=== PATIENT | male | born 1995 | race Caucasian/White ===

== ENCOUNTER 2019-05-11 18:39 | Observation (INO) | payer OTHER, SELFPAY ==
[2019-05-11 18:40] VITALS: BP 129/81; PULSE 95; RESP 15; TEMP 36.6; O2SAT 96; BMI 33.7
[2019-05-11 20:03] LABS: Add Manual Diff / Slide Review NO; Basophils Absolute Auto 100 /uL (0-100); Basophils Percent Auto 0.6 % (0-2); Eosinophils Absolute Auto 400 /uL (0-450); Eosinophils Percent Auto 2.8 % (2-4); Hemoglobin 14.1 g/dL (13.5-17.5); Lymphocytes Absolute Auto 2500 /uL (1100-4500); Lymphocytes Percent Auto 19.9 % (25-40); Mean Corpuscular HGB Conc 33.6 % (30-36); Mean Corpuscular Hemoglobin 27.8 PG (26-34); Monocytes Absolute Auto 700 /uL (0-900); Monocytes Percent Auto 5.2 % (3-14); Neutrophils Absolute Auto 9000 /uL (1500-7000); Neutrophils Percent Auto 71.5 % (50-75); Platelet Count 297 X10^3/uL (150-400); Red Blood Cell Count 5.06 X10^6/uL (4.5-5.9); Red Cell Distribution Width 13.1 % (11.6-14.8); White Blood Cell Count 12.6 X10^3/uL (4.5-11.0)
[2019-05-11 20:04] LABS: INR 1.1 (0.9-1.3); Prothrombin Time 12.5 SECONDS (10.1-12.7)
[2019-05-11 20:06] LABS: PTT Partial Thromboplastin Tim 29 SECONDS (26.4-36.2)
[2019-05-11 20:08] LABS: Alanine Aminotransferase 32 IU/L (21-72); Albumin 4.4 g/dL (3.5-5.0); Albumin Globulin Ratio 1.7 (1.0-2.8); Alkaline Phosphatase 61 U/L (38-126); Aspartate Aminotransferase 22 IU/L (17-59); Bilirubin Total 0.6 mg/dL (0.2-1.3); Blood Urea Nitrogen 32 mg/dL (9-20); Calcium 9.2 mg/dL (8.4-10.2); Carbon Dioxide 22 mmol/L (22-32); Chloride 106 mmol/L (98-107); Estimated Glomerular Filt Rate > 60.0 mL/min (>60); Globulin 2.6 g/dL (1.7-4.1); Glucose 100 mg/dL (70-100); HEMOLYSIS < 15 (0-50); Potassium 4.5 mmol/L (3.4-5.1); Sodium 139 mmol/L (137-145)
--- NOTE | 2019-05-11 20:38 | ED.GIBLEED ---
HPI - GI Bleed General Chief complaint: GI Bleed Stated complaint: BLACK STOOLS RED Time Seen by Provider: 05/11/19 19:29 Source: patient Mode of arrival: Ambulatory Limitations: no limitations History of Present Illness HPI Narrative: The patient was having abdominal discomfort earlier today. He saw his doctor about an asthma checkup about 4:00 p.m.. After leaving the doctor's office he developed a bloody diarrhea. He has had no fever, chills or sweats. He has no chest pain or dyspnea. He has only lower abdominal discomfort. He has no history of ulcers, or chronic GI illness. There is no family history of inflammatory bowel disease issues. He has no prior history of GI bleed. He had the bloody diarrhea, no changes with bowel movements, no history of hemorrhoids. He denies weakness or dizziness. He does not take aspirin or other NSAIDs. He is in otherwise good health. Related Data Allergies Allergy/AdvReac Type Severity Reaction Status Date / Time aspirin [ASPIRIN] Allergy Mild SHAKES, CHERY Verified 05/11/19 18:49 oxycodone [OXYCODONE] Allergy Unknown HIVES=PERCO Verified 05/11/19 18:49 CET Review of Systems Review of Systems ROS Unobtainable: All systems reviewed & are unremarkable except as noted in HPI and below Constitutional Constitutional: Denies chills, Denies fever(s), Denies lethargy and Denies weakness ENT Ears, Nose, Mouth, and Throat: Denies neck pain and Denies sore throat Cardiovascular Cardiovascular: Denies chest pain, Denies irregular heart rhythm, Denies lightheadedness, Denies palpitations and Denies dyspnea Respiratory Respiratory: Denies cough, Denies dyspnea and Denies wheezing Gastrointestinal Gastrointestinal: Reports abdominal pain (Lower abdomen.), Denies nausea, Denies vomiting and Reports other (Bloody diarrhea) Genitourinary Genitourinary: Denies dysuria Musculoskeletal Musculoskeletal: Denies back pain and Denies neck pain Integumentary/Breasts Skin/Breast: Denies erythema, Denies rash and Denies wounds Neurologic Neurologic: Denies weakness Endocrine Endocrine: Denies palpitations Allergic/Immunologic Allergic/Immunologic: Denies wheezing [facility] Surgical History (Updated 05/12/19 @ 02:16 by Andrew Zelaya MD) No pertinent past surgical history (Acute) Social History household members: friend(s) Smoking Status: Never smoker Social History household members: friend(s) Smoking Status: Never smoker Exam Initial Vital Signs Initial Vital Signs: Vital Signs Temperature 97.8 F 05/11/19 18:40 Pulse Rate 95 H 05/11/19 18:40 Respiratory Rate 15 05/11/19 18:40 Blood Pressure 129/81 05/11/19 18:40 Pulse Oximetry 96 05/11/19 18:40 Const General: cooperative and well developed Nutritional Appearance: well nourished Orientation: alert, awake and oriented x3 HENMT Head: normocephalic and atraumatic Eyes Conjunctivae: conjunctivae normal Chest Chest: normal inspection of the chest Resp Effort & Inspection: normal respiratory effort, able to speak in complete sentences, no respiratory distress and no use of accessory muscles Auscultation: clear to auscultation bilaterally, no rales, no rhonchi and no wheezes Cardio Rate: regular rate Rhythm: regular rhythm Heart Sounds: S1 normal, S2 normal, no click, no gallops, no murmurs and no rubs Pulses: normal peripheral pulses GI Inspection: non-distended Palpation: soft, no hepatosplenomegaly, No guarding, No pulsatile mass and tender (Suprapubic and LLQ) Auscultation: normal bowel sounds Back/Spine/Pelvis Back: No CVA tenderness Skin General: no rashes or lesions noted, No jaundice and No petechiae Neuro General: alert, oriented x3, gait normal and no focal motor deficits Speech: speech normal Extrem General: full ROM, no clubbing, cyanosis or edema, no pedal edema and no calf tenderness Course Course Course Narrative: The patient has continued to have bloody diarrhea since arrival to the ER. CT of the abdomen pelvis is benign. Repeat H/H reveals notable decline. The case was discussed with on-call surgery, Dr. Dunn. He will follow patient consultation. The case was also discussed with the on-call hospitalist, WANDY Wahl. He will admit the patient. The patient has received IV fluids and Protonix prior to admission. Orders Ordered: ED Orders 05/11/19 19:45 Complete Blood Count AUTO DIFF Stat Comprehensive Metabolic Panel Stat Partial Thromboplastin Time Stat Prothrombin Time INR Stat Type and Screen Stat 05/11/19 19:58 EKG-12 Lead Stat 05/11/19 20:45 CT abdomen pelvis w con Stat 05/11/19 23:17 Complete Blood Count AUTO DIFF Stat Acetaminophen (Tylenol) 650 mg PO Q6HR PRN PRN Reason: As Needed for Fever/Mild Pain Sodium Chloride (Normal Saline 0.9%) 1,000 mls @ 100 mls/hr IV CONT [place] Last Admin: 05/12/19 01:52 Dose: 100 mls/hr Documented by: ARTIE Ondansetron HCl (Zofran Odt) 4 mg PO Q8HR PRN PRN Reason: Nausea And Vomiting Pantoprazole Sodium (Protonix) 40 mg IV DAILY [place] Discontinued Medications Sodium Chloride (Normal Saline 0.9%) 1,000 mls @ 1,000 mls/hr IV BOLUS ONE Stop: 05/11/19 21:44 Last Infusion: 05/11/19 21:49 Dose: 0 mls/hr Documented by: Admin: 05/11/19 20:57 Dose: 1,000 mls/hr Documented by: FRANCIE Pantoprazole Sodium (Protonix) 40 mg IV NOW ONE Stop: 05/12/19 00:32 Last Admin: 05/12/19 00:53 Dose: 40 mg Documented by: FRANCIE Pantoprazole Sodium (Protonix) 40 mg PO 0600 [facility] Vital Signs Vital signs: Vital Signs - 8 hr 05/11/19 18:40 05/11/19 21:30 Temperature 97.8 F Pulse Rate 95 H 84 Respiratory Rate 15 16 Blood Pressure 129/81 Blood Pressure [Right Arm] 132/89 Pulse Oximetry 96 98 MDM - GI Bleed Lab Data Result diagrams: 05/11/19 23:17 05/11/19 19:45 Labs: Lab Results 05/11/19 05/11/19 05/11/19 Range/Units 19:45 19:45 19:45 WBC 12.6 H (4.5-11.0) X10^3/uL RBC 5.06 (4.5-5.9) X10^6/uL Hgb 14.1 (13.5-17.5) g/dL Hct 42.0 (41-53) % MCV 83.0 (80-100) fL MCH 27.8 (26-34) PG MCHC 33.6 (30-36) % RDW 13.1 (11.6-14.8) % Plt Count 297 (150-400) X10^3/uL Neut % (Auto) 71.5 (50-75) % Lymph % (Auto) 19.9 L (25-40) % [place] % (Auto) 5.2 (3-14) % Eos % (Auto) 2.8 (2-4) % Baso % (Auto) 0.6 (0-2) % Neut # (Auto) 9000 H (5090-1230) /uL Lymph # (Auto) 2500 (0286-9585) /uL [place] # (Auto) 700 (0-900) /uL Eos # (Auto) 400 (0-450) /uL Baso # (Auto) 100 (0-100) /uL PT 12.5 (10.1-12.7) SECONDS INR 1.1 (0.9-1.3) APTT 29 (26.4-36.2) SECONDS Sodium 139 (137-145) mmol/L Potassium 4.5 (3.4-5.1) mmol/L Chloride 106 (98-107) mmol/L Carbon Dioxide 22 (22-32) mmol/L BUN 32 H (9-20) mg/dL Creatinine 0.80 (0.66-1.25) mg/dL Estimated GFR > 60.0 (>60) mL/min BUN/Creatinine Ratio 40.0 H (6-22) Glucose 100 (70-100) mg/dL Calcium 9.2 (8.4-10.2) mg/dL Total Bilirubin 0.6 (0.2-1.3) mg/dL AST 22 (17-59) IU/L ALT 32 (21-72) IU/L Alkaline Phosphatase 61 (38-126) U/L Total Protein 7.0 (6.3-8.2) g/dL Albumin 4.4 (3.5-5.0) g/dL Globulin 2.6 (1.7-4.1) g/dL Albumin/Globulin Ratio 1.7 (1.0-2.8) Blood Type Antibody Screen 05/11/19 05/11/19 Range/Units 19:45 23:17 WBC 10.7 (4.5-11.0) X10^3/uL RBC 4.57 (4.5-5.9) X10^6/uL Hgb 12.9 L (13.5-17.5) g/dL Hct 37.5 L (41-53) % MCV 82.2 (80-100) fL MCH 28.1 (26-34) PG MCHC 34.2 (30-36) % RDW 13.0 (11.6-14.8) % Plt Count 278 (150-400) X10^3/uL Neut % (Auto) 63.5 (50-75) % Lymph % (Auto) 28.7 (25-40) % [place] % (Auto) 4.5 (3-14) % Eos % (Auto) 2.8 (2-4) % Baso % (Auto) 0.5 (0-2) % Neut # (Auto) 6800 (5388-8835) /uL Lymph # (Auto) 3100 (7310-5400) /uL [place] # (Auto) 500 (0-900) /uL Eos # (Auto) 300 (0-450) /uL Baso # (Auto) 100 (0-100) /uL PT (10.1-12.7) SECONDS INR (0.9-1.3) APTT (26.4-36.2) SECONDS Sodium (137-145) mmol/L Potassium (3.4-5.1) mmol/L Chloride (98-107) mmol/L Carbon Dioxide (22-32) mmol/L BUN (9-20) mg/dL Creatinine (0.66-1.25) mg/dL Estimated GFR (>60) mL/min BUN/Creatinine Ratio (6-22) Glucose (70-100) mg/dL Calcium (8.4-10.2) mg/dL Total Bilirubin (0.2-1.3) mg/dL AST (17-59) IU/L ALT (21-72) IU/L Alkaline Phosphatase (38-126) U/L Total Protein (6.3-8.2) g/dL Albumin (3.5-5.0) g/dL Globulin (1.7-4.1) g/dL Albumin/Globulin Ratio (1.0-2.8) Blood Type O Positive Antibody Screen Negative Urine Dip Bedside Urine Glucose Negative Bedside Urine Bilirubin - Negative Bedside Urine Ketone +/- 5 Urine Specific [place] 1.015 Bedside Urine Occult Blood - Negative Bedside Urine pH 6.5 Bedside Urine Protein - Negative Bedside Urine Urobilinogen - Negative Bedside Urine Nitrite - Negative Bedside Urine Leukocytes - Negative Esterase Imaging Data CT scan - abdomen: Radiologist's impression: [address] [address] [address] Scan Report Signed Patient: Reinaldo Portillo JMR#: [id number] : 1995Acct:[id number] Age/Sex: 24 / MDate of Service: 05/11/19 Loc: ED Accession Number: [id number] Procedure: CT abdomen pelvis w con Ordering Provider: Andrew Zelaya MD PROCEDURE: CT ABDOMEN PELVIS W CON INDICATIONS: GI bleed. LLQ abdominal pain TECHNIQUE: After the administration of intravenous contrast, 5 mm thick sections acquired from the diaphragm to the symphysis. 5 mm coronal and sagittal reformats were acquired. For radiation dose reduction, the following was used: automated exposure control, adjustment of mA and/or kV according to patient size. COMPARISON: None. FINDINGS: Image quality: Diagnostic. Mild motion artifact. ABDOMEN: Lung bases: Lung bases are clear. No pleural effusion. Heart size is prominent. Solid organs: Liver is normal in size and enhancement. No focal lesion. Gallbladder is normal. Biliary system is non dilated. Pancreas enhances normally. Spleen is normal in size and enhancement. No adrenal nodules. Kidneys demonstrate normal size and enhancement, without hydronephrosis. Peritoneum and bowel: Bowel loops demonstrate normal wall thickness and caliber. Identification of GI bleeding may be obscured by positive oral contrast. No obvious mass. The appendix is normal. No free fluid or air. Nodes and vessels: No retroperitoneal or mesenteric adenopathy by size criteria. Aorta and inferior vena cava are normal in size. Miscellaneous: No ventral hernias. PELVIS: Genitourinary: Bladder is unremarkable. Miscellaneous: No inguinal hernias or adenopathy. Bones: No suspicious bony lesions. No vertebral body compression fractures. IMPRESSION: Negative exam. No abnormality identified to explain the patient's left lower quadrant abdominal pain. Note: GI bleeding could be obscured with the positive oral contrast. Dictated by: Pedro Perez M.D. on 05/11/2019 at 22:30 Approved by: Pedro Perez M.D. on 05/11/2019 at 22:36 Critical Care Time Critical Care Time Critical Care Time: Yes Total Critical Care Time: 35 Attestation: Critical care time included the initial evaluation, review radiology and lab data, multiple clinical decisions, and consultation with the on-call surgeon and hospitalist. Discharge Plan Departure Patient Disposition: Admitted as Observation Clinical Impression: Acute gastrointestinal bleeding Admit Date/Time: 05/12/19 00:48 Admit Provider: Alexi Wahl
--- NOTE | 2019-05-11 20:45 | DI.CT.S_ITS ---
PROCEDURE: CT ABDOMEN PELVIS W CON INDICATIONS: GI bleed. LLQ abdominal pain TECHNIQUE: After the administration of intravenous contrast, 5 mm thick sections acquired from the diaphragm to the symphysis. 5 mm coronal and sagittal reformats were acquired. For radiation dose reduction, the following was used: automated exposure control, adjustment of mA and/or kV according to patient size. COMPARISON: None. FINDINGS: Image quality: Diagnostic. Mild motion artifact. ABDOMEN: Lung bases: Lung bases are clear. No pleural effusion. Heart size is prominent. Solid organs: Liver is normal in size and enhancement. No focal lesion. Gallbladder is normal. Biliary system is non dilated. Pancreas enhances normally. Spleen is normal in size and enhancement. No adrenal nodules. Kidneys demonstrate normal size and enhancement, without hydronephrosis. Peritoneum and bowel: Bowel loops demonstrate normal wall thickness and caliber. Identification of GI bleeding may be obscured by positive oral contrast. No obvious mass. The appendix is normal. No free fluid or air. Nodes and vessels: No retroperitoneal or mesenteric adenopathy by size criteria. Aorta and inferior vena cava are normal in size. Miscellaneous: No ventral hernias. PELVIS: Genitourinary: Bladder is unremarkable. Miscellaneous: No inguinal hernias or adenopathy. Bones: No suspicious bony lesions. No vertebral body compression fractures. IMPRESSION: Negative exam. No abnormality identified to explain the patient's left lower quadrant abdominal pain. Note: GI bleeding could be obscured with the positive oral contrast. Dictated by: Pedro Perez M.D. on 05/11/2019 at 22:30 Approved by: Pedro Perez M.D. on 05/11/2019 at 22:36
[2019-05-11] MEDS: SODIUM CHLORIDE 0.9% 1,000 ML 1000 ML IV (20:57)
[2019-05-11 21:30] VITALS: BP 132/89; PULSE 84; RESP 16; O2SAT 98
[2019-05-11 23:24] LABS: Add Manual Diff / Slide Review NO; Basophils Absolute Auto 100 /uL (0-100); Basophils Percent Auto 0.5 % (0-2); Eosinophils Absolute Auto 300 /uL (0-450); Eosinophils Percent Auto 2.8 % (2-4); Hematocrit 37.5 % (41-53); Hemoglobin 12.9 g/dL (13.5-17.5); Lymphocytes Absolute Auto 3100 /uL (1100-4500); Lymphocytes Percent Auto 28.7 % (25-40); Mean Corpuscular HGB Conc 34.2 % (30-36); Mean Corpuscular Hemoglobin 28.1 PG (26-34); Mean Corpuscular Volume 82.2 fL (80-100); Monocytes Absolute Auto 500 /uL (0-900); Monocytes Percent Auto 4.5 % (3-14); Neutrophils Absolute Auto 6800 /uL (1500-7000); Neutrophils Percent Auto 63.5 % (50-75); Platelet Count 278 X10^3/uL (150-400); Red Blood Cell Count 4.57 X10^6/uL (4.5-5.9); White Blood Cell Count 10.7 X10^3/uL (4.5-11.0)
[2019-05-12] VITALS (12 sets, daily range): BP systolic 119–138; BP diastolic 67–93; PULSE 68–90; RESP 16–18; TEMP 36.1–36.8; O2SAT 97–100; BMI 33.7
[2019-05-12] MEDS: PANTOPRAZOLE 40 MG VIAL IV ×2 (00:53→08:20)
--- NOTE | 2019-05-12 01:32 | PM.HP.1 ---
History of Present Illness History of Present Illness Date Patient Seen: 05/12/19 Time Patient Seen: 01:32 Chief complaint: BLACK STOOLS RED Narrative: Mr. Reinaldo Portillo is a 24-year-old male patient with history significant for asthma and left TMJ pain presents to the ER with bloody stools. Patient states he had an acute onset of symptoms at 5:00 p.m. with lower abdominal pain that he describes as an intense ache. He went to the bathroom and passed bloody stool that he describes as black and crimson. With that he had associated symptoms of acute onset of dizziness, diaphoresis and nausea. He states he laid on the floor for approximately 20 minutes after which his systems improved and he had another bloody stool. He has had no hematemesis and has no personal or family history of GI problems and has never experienced bleeding of this nature before. He does have hemorrhoids. He also informs me he he takes ibuprofen approximately 3 times per week. He had no antecedent complaints or symptoms and was is in usual state health prior to his bloody stool. Reports no complaints of fevers or chills, chest pain or palpitations, shortness of breath or cough. He does have a history of asthma and uses an albuterol inhaler approximately once every other week. Reports no recent change in bowel habits and has no urinary difficulties. He reports no extremity or joint pains. Upon arrival in the ER the patient is afebrile with temperature 97.8?, heart rate of 95, blood pressure 129/81, respirations 15 saturating 96% on room air. Patient underwent laboratory testing finding an initial white count of 12.6, hemoglobin of 14 1 and hematocrit of 42 and platelets 278. On a subsequent recheck 3 hours later his hemoglobin had dropped to 12.9 and hematocrit to 37.5. His stool is guaiac positive. His chemistries are within normal limits, his BUN is 32 and creatinine 0.8. His nonfasting glucose is 100. His coagulation studies are within normal ranges as are his liver function. The ER consulted Dr. Dunn for evaluation of GI bleeding. He received a dose of Protonix 40 mg in the ER and is admitted for serial lab testing and evaluation of GI bleeding by General surgery. Patient History Medical History (Updated 05/12/19 @ 03:13 by WANDY [place]) Arthralgia of left temporomandibular joint (Acute) Asthma (02/28/14) Heart murmur on physical examination (Inactive) Surgical History (Updated 05/12/19 @ 03:13 by WANDY [place]) History of eye surgery (Acute) No pertinent past surgical history (Acute) Social History household members: friend(s) Smoking Status: Never smoker Family & Social History Safety & Behavioral: Feels Safe in Current Yes Environment Been Physically Hurt or No Threatened By a Person Tobacco & Substance use: Smoking Status Unknown if ever smoked alcohol intake frequency holiday/special occasion Substance Use Type does not use Comment: The patient is single and lives in a single family house with a roommate. He is unsure of family history estranged from his mother and father. He has 3 sisters who he states are in good health. 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 Smoking: Patient endorses occasionally smoking cigar but none for the last 5 months. Alcohol: Patient endorses occasionally drinking alcohol. Substance use: Patient denies recreational pharmaceuticals, herbal or cannabis products. Advanced directives: The patient has no formal advanced directives but in direct conversation expresses his desire to be FULL CODE. He designates Betina Lubin to be his surrogate decision maker.. Meds Home Medications and Allergies Home Medications Medication Instructions Recorded Confirmed Type albuterol sulfate 2 puff INHALATION Q4-6H PRN 05/12/19 05/12/19 History Allergies Allergy/AdvReac Type Severity Reaction Status Date / Time aspirin [ASPIRIN] Allergy Mild SHAKES, CHERY Verified 05/11/19 18:49 oxycodone [OXYCODONE] Allergy Unknown HIVES=PERCO Verified 05/11/19 18:49 CET Review of Systems Review of Systems ROS Unobtainable: All systems reviewed & are unremarkable except as noted in HPI and below Exam Vital Signs (past 8 hours): - 05/11/19 18:40 05/11/19 21:30 05/12/19 01:09 Temperature 97.8 F 97.6 F Pulse Rate 95 H 84 90 Respiratory Rate 15 16 18 Blood Pressure 129/81 Blood Pressure [Right Arm] 132/89 125/93 H Pulse Oximetry 96 98 100 Oxygen Delivery Method Room Air Narrative Exam Narrative: GENERAL APPEARANCE: well developed, overweight male ambulatory in the room in no acute distress. HEENT: Normocephalic, PERRLA, sclera anicteric conjunctiva clear, EOMs intact without nystagmus, no rhinorrhea, mucous membranes are moist and pink without lesions or exudate. NECK/THYROID: neck supple, no JVD, no thyromegaly, trachea midline. LYMPH NODES: no cervical or supraclavicular lymphadenopathy. SKIN: warm and dry, no suspicious lesions, no rashes, ulcerations or petechiae. HEART: regular rate and rhythm, S1-S2, faint systolic murmur, no rubs or gallops, brisk capillary refill, no edema LUNGS: clear to auscultation bilaterally, no coarseness crackles or wheezing, no cough present CHEST: Symmetrical movement, no accessory muscle use, no pain to AP and lateral compression. ABDOMEN: Soft, no distention, epigastric discomfort on palpation bilateral lower abdominal tenderness on palpation no guarding or peritoneal signs, no organomegaly, hyperactive bowel tones. BACK: Normal curvature, nontender to palpation, no CVA tenderness on percussion EXTREMITIES: moves all extremities, strength is 5/5 and symmetrical, no deformities or joint effusions, no gait abnormality. NEUROLOGIC: AAO x4, no focal neurologic deficits, sensation intact to light touch, hearing grossly normal to speech. PSYCH: alert, mildly apprehensive, cognitive function intact, good eye contact, appropriate with stable behavior Objective Labs Result Diagrams: 05/11/19 23:17 05/11/19 19:45 Labs: Laboratory Results - last 24 hr 05/11/19 05/11/19 05/11/19 19:45 19:45 19:45 WBC 12.6 H RBC 5.06 Hgb 14.1 Hct 42.0 MCV 83.0 MCH 27.8 MCHC 33.6 RDW 13.1 Plt Count 297 Neut % (Auto) 71.5 Lymph % (Auto) 19.9 L [place] % (Auto) 5.2 Eos % (Auto) 2.8 Baso % (Auto) 0.6 Neut # (Auto) 9000 H Lymph # (Auto) 2500 [place] # (Auto) 700 Eos # (Auto) 400 Baso # (Auto) 100 PT 12.5 INR 1.1 APTT 29 Sodium 139 Potassium 4.5 Chloride 106 Carbon Dioxide 22 BUN 32 H Creatinine 0.80 Estimated GFR > 60.0 BUN/Creatinine Ratio 40.0 H Glucose 100 Calcium 9.2 Total Bilirubin 0.6 AST 22 ALT 32 Alkaline Phosphatase 61 Total Protein 7.0 Albumin 4.4 Globulin 2.6 Albumin/Globulin Ratio 1.7 Blood Type Antibody Screen 05/11/19 05/11/19 19:45 23:17 WBC 10.7 RBC 4.57 Hgb 12.9 L Hct 37.5 L MCV 82.2 MCH 28.1 MCHC 34.2 RDW 13.0 Plt Count 278 Neut % (Auto) 63.5 Lymph % (Auto) 28.7 [place] % (Auto) 4.5 Eos % (Auto) 2.8 Baso % (Auto) 0.5 Neut # (Auto) 6800 Lymph # (Auto) 3100 [place] # (Auto) 500 Eos # (Auto) 300 Baso # (Auto) 100 PT INR APTT Sodium Potassium Chloride Carbon Dioxide BUN Creatinine Estimated GFR BUN/Creatinine Ratio Glucose Calcium Total Bilirubin AST ALT Alkaline Phosphatase Total Protein Albumin Globulin Albumin/Globulin Ratio Blood Type O Positive Antibody Screen Negative Assessment & Plan Assessment & Plan narrative: This is a 24-year-old male who has precipitous onset of lower GI bleeding with black g in stool at 5:00 p.m. without prodromal symptoms. 1. Acute lower GI bleed, present on admission, active -patient continued to have GI bleeding in the ER. Bilateral lower quadrant pain and epigastric pain on palpation. -patient does endorse using ibuprofen 3 times weekly, advised to discontinue medication. -CT exam of abdomen and pelvis finds no explanation for the patient's pain. -appreciate consult from Dr. Dunn and his recommendations. -will continue Protonix 40 mg daily -patient is NPO, normal saline at 100 cc/hour. -will obtain serial blood count, patient is typed and screened and will transfuse as indicated. 2. Mild persistent asthma, present on admission, stable. -patient asymptomatic denies complaints shortness of breath cough or wheezing, the patient is on room air saturating 96-98%. -order albuterol MDI 2 puffs q.4 hours as needed for shortness of breath or wheezing. The patient is admitted to the hospital related to risks of adverse events and complications from GI bleeding. He is admitted observation with expected length of stay to be less than 2 midnights. Scores GCS [place] coma scale eye opening: Spontaneous [place] coma scale verbal response: Orientated [place] coma scale motor response: Obey commands [place] coma scale total score: 15
[2019-05-12] MEDS: SODIUM CHLORIDE 0.9% 1,000 ML 100 ML IV (01:52)
--- NOTE | 2019-05-12 02:34 | PC.ADMIT ---
[id number] Admission Note: The patient,Reinaldo Portillo,24 y/o, was given written information regarding hospital policies, unit procedures and contact persons. Patient's smoking status: Never smoker. Vital Signs - 8 hr 05/11/19 18:40 05/11/19 21:30 05/12/19 01:09 Temperature 97.8 F 97.6 F Pulse Rate 95 H 84 90 Respiratory Rate 15 16 18 Blood Pressure 129/81 Blood Pressure [Right Arm] 132/89 125/93 H Pulse Oximetry 96 98 100 05/12/19 01:25 05/12/19 01:26 Temperature 97.3 F L Pulse Rate 74 Respiratory Rate 18 Blood Pressure 138/78 Blood Pressure [Right Arm] Pulse Oximetry 97 97 Pt arrived via wheelchair, accompanied by ED SCHOOL LEADER, transferred self to bed and ambulated with no assistance or weakness to toilet. VSS, on RA @ 97%, can make needs known. Left AC IV infusing NS @ 100ml/hr. Pt is a low fall risk, educated rehabilitation aide/scheduler light and bed controls, acknowledged all education.
[2019-05-12 05:35] LABS: Add Manual Diff / Slide Review NO; Basophils Absolute Auto 0 /uL (0-100); Basophils Percent Auto 0.5 % (0-2); Eosinophils Absolute Auto 400 /uL (0-450); Eosinophils Percent Auto 4.3 % (2-4); Hematocrit 36.4 % (41-53); Hemoglobin 12.5 g/dL (13.5-17.5); Lymphocytes Absolute Auto 3200 /uL (1100-4500); Lymphocytes Percent Auto 38.6 % (25-40); Mean Corpuscular HGB Conc 34.2 % (30-36); Mean Corpuscular Hemoglobin 28.3 PG (26-34); Mean Corpuscular Volume 82.5 fL (80-100); Monocytes Absolute Auto 500 /uL (0-900); Monocytes Percent Auto 5.8 % (3-14); Neutrophils Absolute Auto 4300 /uL (1500-7000); Neutrophils Percent Auto 50.8 % (50-75); Platelet Count 254 X10^3/uL (150-400); Red Blood Cell Count 4.41 X10^6/uL (4.5-5.9); Red Cell Distribution Width 13.3 % (11.6-14.8); White Blood Cell Count 8.4 X10^3/uL (4.5-11.0)
[2019-05-12 05:40] LABS: BUN Creatinine Ratio 27.5 (6-22); Blood Urea Nitrogen 22 mg/dL (9-20); Calcium 8.9 mg/dL (8.4-10.2); Carbon Dioxide 27 mmol/L (22-32); Chloride 105 mmol/L (98-107); Estimated Glomerular Filt Rate > 60.0 mL/min (>60); Glucose 91 mg/dL (70-100); HEMOLYSIS < 15 (0-50); Potassium 4.2 mmol/L (3.4-5.1); Sodium 138 mmol/L (137-145)
[2019-05-12] MEDS: BISACODYL 5 MG TABLET PO (10:51)
[2019-05-12] MEDS: PEG3350/SOD SULF,BICARB,CL/KCL 4,000 ML SOLUTION 4000 ML PO (11:01)
[2019-05-12] MEDS: SODIUM CHLORIDE 0.9% 1,000 ML 200 ML IV ×2 (11:01→17:59)
--- NOTE | 2019-05-12 11:06 | PC.NURSE ---
Addendum entered by Jennifer Rodriguez R.N. 05/12/19 13:47: Pt reports having yellow loose BM's. Continuing drinking GoLytely and having apple juice after. Denies abd cramping or nausea. Addendum entered by Jennifer Rodriguez R.N. 05/12/19 12:28: Pt given moist wipes and barrier cream to apply after each Bowel movement to prevent irritation.. Updated pt's grandmother Bruno kelton grandfather at bedside. Original Note: Day Shift- Pt anxious about endo/colonoscopy procedure. Updated this will be tomorrow. Written information given to pt, pt states he doesn't want to know details right now. Placed in his folder at bedside. Support and encouragement given. Pt states he just wants it done to know results. Pt up to shower at 1100. Given instructions on bowel prep and clear liquid diet today and NPO at midnight. IVF increased to 200ml/hr per order. Pt's friend Jennifer called and updated at 1033. Code word given by Jennifer and pt okay and agreed with given info.
--- NOTE | 2019-05-12 12:27 | P.CONS_ITS ---
History of Present Illness Consult details Date Patient Seen: 05/12/19 Time Patient Seen: 12:28 Chief complaint: BLACK STOOLS RED Narrative: 24-year-old male presented to the emergency room with melanotic stools. No hematemesis. Mild lower abdominal pain. Has been on ibuprofen several times weekly recently for temporomandibular joint disease. No nausea no vomiting no history of inflammatory bowel disease or malignancy. Arrival to the emergency room he is hemodynamically stable. Initial hematocrit 42, 36 this morning not requiring transfusion. [facility] Medical History Arthralgia of left temporomandibular joint (Acute) Asthma (02/28/14) Heart murmur on physical examination (Inactive) Surgical History History of eye surgery (Acute) No pertinent past surgical history (Acute) Social History household members: friend(s) Smoking Status: Never smoker Social History household members: friend(s) Smoking Status: Never smoker Meds Home Medications and Allergies Home Medications Medication Instructions Recorded Confirmed Type albuterol sulfate 2 puff INHALATION Q4-6H PRN 05/12/19 05/12/19 History Allergies Allergy/AdvReac Type Severity Reaction Status Date / Time aspirin [ASPIRIN] Allergy Mild SHAKES, CHERY Verified 05/11/19 18:49 oxycodone [OXYCODONE] Allergy Unknown HIVES=PERCO Verified 05/11/19 18:49 CET Review of Systems Review of Systems ROS Unobtainable: All systems reviewed & are unremarkable except as noted in HPI and below Exam Vital Signs (past 8 hours): - 05/12/19 04:40 05/12/19 05:06 05/12/19 08:00 Temperature 97.0 F L 98.3 F Pulse Rate 75 78 Respiratory Rate 18 16 Blood Pressure 119/67 129/75 Pulse Oximetry 97 97 97 05/12/19 08:05 05/12/19 09:24 Temperature Pulse Rate 68 Respiratory Rate 16 Blood Pressure Pulse Oximetry 97 98 Fraction of Inspired Oxygen 21 Oxygen Delivery Method Room Air Oxygen Flow Rate 0 Narrative Exam Narrative: General-adult male no acute distress, well nourished HEENT-moist mucous membranes, no scleral icterus Neck-supple with full range of motion, no lymphadenopathy Chest- no labored respirations, clear to auscultation bilaterally Cardiac-regular rate and rhythm Abdomen-soft, nontender, non distended Extremities-no edema, warm well perfused Neurological-alert and oriented x 3. No focal deficits Skin-normal temperature and turgor, no rashes or ulcers Objective Labs Result Diagrams: 05/12/19 05:09 05/12/19 05:09 Labs: Laboratory Results - last 24 hr 05/11/19 05/11/19 05/11/19 19:45 19:45 19:45 WBC 12.6 H RBC 5.06 Hgb 14.1 Hct 42.0 MCV 83.0 MCH 27.8 MCHC 33.6 RDW 13.1 Plt Count 297 Neut % (Auto) 71.5 Lymph % (Auto) 19.9 L [place] % (Auto) 5.2 Eos % (Auto) 2.8 Baso % (Auto) 0.6 Neut # (Auto) 9000 H Lymph # (Auto) 2500 [place] # (Auto) 700 Eos # (Auto) 400 Baso # (Auto) 100 PT 12.5 INR 1.1 APTT 29 Sodium 139 Potassium 4.5 Chloride 106 Carbon Dioxide 22 BUN 32 H Creatinine 0.80 Estimated GFR > 60.0 BUN/Creatinine Ratio 40.0 H Glucose 100 Calcium 9.2 Magnesium Total Bilirubin 0.6 AST 22 ALT 32 Alkaline Phosphatase 61 Total Protein 7.0 Albumin 4.4 Globulin 2.6 Albumin/Globulin Ratio 1.7 Blood Type Antibody Screen 05/11/19 05/11/19 05/12/19 19:45 23:17 05:09 WBC 10.7 8.4 RBC 4.57 4.41 L Hgb 12.9 L 12.5 L Hct 37.5 L 36.4 L MCV 82.2 82.5 MCH 28.1 28.3 MCHC 34.2 34.2 RDW 13.0 13.3 Plt Count 278 254 Neut % (Auto) 63.5 50.8 Lymph % (Auto) 28.7 38.6 [place] % (Auto) 4.5 5.8 Eos % (Auto) 2.8 4.3 H Baso % (Auto) 0.5 0.5 Neut # (Auto) 6800 4300 Lymph # (Auto) 3100 3200 [place] # (Auto) 500 500 Eos # (Auto) 300 400 Baso # (Auto) 100 0 PT INR APTT Sodium Potassium Chloride Carbon Dioxide BUN Creatinine Estimated GFR BUN/Creatinine Ratio Glucose Calcium Magnesium Total Bilirubin AST ALT Alkaline Phosphatase Total Protein Albumin Globulin Albumin/Globulin Ratio Blood Type O Positive Antibody Screen Negative 05/12/19 05:09 WBC RBC Hgb Hct MCV MCH MCHC RDW Plt Count Neut % (Auto) Lymph % (Auto) [place] % (Auto) Eos % (Auto) Baso % (Auto) Neut # (Auto) Lymph # (Auto) [place] # (Auto) Eos # (Auto) Baso # (Auto) PT INR APTT Sodium 138 Potassium 4.2 Chloride 105 Carbon Dioxide 27 BUN 22 H Creatinine 0.80 Estimated GFR > 60.0 BUN/Creatinine Ratio 27.5 H Glucose 91 Calcium 8.9 Magnesium 2.0 Total Bilirubin AST ALT Alkaline Phosphatase Total Protein Albumin Globulin Albumin/Globulin Ratio Blood Type Antibody Screen Assessment & Plan Assessment & Plan narrative: 24-year-old male with new onset GI bleed, melanotic stools no hematemesis, hemodynamically stable. Not requiring transfusion. -Esophagoduodenoscopy colonoscopy 05/13. We discussed the risks of the procedure including bleeding and perforation missed diagnosis need for further procedure. His questions have been answered and he is agreement with this plan. -Bowel prep today -NPO after midnight 05/13
--- NOTE | 2019-05-12 13:44 | CM.DANOTE ---
DCP Brief Assessment Patient is a 24 year old male who was admitted on 05/12/19 for Black Stools, G.I bleed. Pt has PRE DIM for insurance and his PCP is not listed. EMR was reviewed. Per MD, surgeon to consult to determine if surgical intervention needed. Per Surgeon Dr. Dunn, pt agreeable with scheduled colonoscopy tomorrow 05/13/19 and currently NPO and bowel prep underway. Pt lives at home in [place] with roommate and works at the [employer] at baseline an independent with ADL's. SW needs unclear at this time. Plan: SW to follow closely after surgical procedure tomorrow to determine if pt will be safe for d/c home when medically stable and any further identified d/c needs. SHANNAN Rhodes
--- NOTE | 2019-05-12 17:52 | P.PN_ITS ---
Subjective Subjective Date Patient Seen: 05/12/19 Exam Vital Signs (past 8 hours): - 05/12/19 15:30 05/12/19 16:30 Temperature 97.4 F L Pulse Rate 75 Respiratory Rate 16 Blood Pressure 136/67 Pulse Oximetry 99 99 Fraction of Inspired Oxygen 21 Oxygen Delivery Method Room Air Oxygen Flow Rate 0 Objective Labs Result Diagrams: 05/12/19 05:09 05/12/19 05:09 Labs: Laboratory Results - last 24 hr 05/11/19 05/11/19 05/11/19 19:45 19:45 19:45 WBC 12.6 H RBC 5.06 Hgb 14.1 Hct 42.0 MCV 83.0 MCH 27.8 MCHC 33.6 RDW 13.1 Plt Count 297 Neut % (Auto) 71.5 Lymph % (Auto) 19.9 L [place] % (Auto) 5.2 Eos % (Auto) 2.8 Baso % (Auto) 0.6 Neut # (Auto) 9000 H Lymph # (Auto) 2500 [place] # (Auto) 700 Eos # (Auto) 400 Baso # (Auto) 100 PT 12.5 INR 1.1 APTT 29 Sodium 139 Potassium 4.5 Chloride 106 Carbon Dioxide 22 BUN 32 H Creatinine 0.80 Estimated GFR > 60.0 BUN/Creatinine Ratio 40.0 H Glucose 100 Calcium 9.2 Magnesium Total Bilirubin 0.6 AST 22 ALT 32 Alkaline Phosphatase 61 Total Protein 7.0 Albumin 4.4 Globulin 2.6 Albumin/Globulin Ratio 1.7 Blood Type Antibody Screen 05/11/19 05/11/19 05/12/19 19:45 23:17 05:09 WBC 10.7 8.4 RBC 4.57 4.41 L Hgb 12.9 L 12.5 L Hct 37.5 L 36.4 L MCV 82.2 82.5 MCH 28.1 28.3 MCHC 34.2 34.2 RDW 13.0 13.3 Plt Count 278 254 Neut % (Auto) 63.5 50.8 Lymph % (Auto) 28.7 38.6 [place] % (Auto) 4.5 5.8 Eos % (Auto) 2.8 4.3 H Baso % (Auto) 0.5 0.5 Neut # (Auto) 6800 4300 Lymph # (Auto) 3100 3200 [place] # (Auto) 500 500 Eos # (Auto) 300 400 Baso # (Auto) 100 0 PT INR APTT Sodium Potassium Chloride Carbon Dioxide BUN Creatinine Estimated GFR BUN/Creatinine Ratio Glucose Calcium Magnesium Total Bilirubin AST ALT Alkaline Phosphatase Total Protein Albumin Globulin Albumin/Globulin Ratio Blood Type O Positive Antibody Screen Negative 05/12/19 05:09 WBC RBC Hgb Hct MCV MCH MCHC RDW Plt Count Neut % (Auto) Lymph % (Auto) [place] % (Auto) Eos % (Auto) Baso % (Auto) Neut # (Auto) Lymph # (Auto) [place] # (Auto) Eos # (Auto) Baso # (Auto) PT INR APTT Sodium 138 Potassium 4.2 Chloride 105 Carbon Dioxide 27 BUN 22 H Creatinine 0.80 Estimated GFR > 60.0 BUN/Creatinine Ratio 27.5 H Glucose 91 Calcium 8.9 Magnesium 2.0 Total Bilirubin AST ALT Alkaline Phosphatase Total Protein Albumin Globulin Albumin/Globulin Ratio Blood Type Antibody Screen Assessment & Plan Assessment & Plan narrative: Brief progress note: Patient seen and examined. Patient is hemodynamically stable. Patient had large bloody bowel movement overnight but no recurrence. Physical exam unchanged. He notes very mild lower quadrant discomfort to palpitation. Agree with admitting providers assessment and plan. Plan to perform EGD and colonoscopy tomorrow and patient currently undergoing bowel prep. Patient NPO midnight. Quality VTE Deep Vein Thrombosis/Pulmonary Embolism Present on Admission: No
--- NOTE | 2019-05-12 22:03 | PC.NURSE ---
Pt finished drinking his GoLytely and had several loose bowel movement, no blood noted. denied any abdominal pain or cramping. pt remained on clear liquid diet. NPO on midnight.
[2019-05-13] VITALS (24 sets, daily range): BP systolic 81–175; BP diastolic 36–79; PULSE 55–85; RESP 13–18; TEMP 36.2–37; O2SAT 92–100; BMI 33.4
--- NOTE | 2019-05-13 | PATH_ITS ---
[facility] Accession Number: [id number] . 01 Material submitted: . gastrointestinal site - GASTRITIS BIOPSY . 02 Diagnosis: Stomach, Biopsy: Body type mucosa with mild chronic gastritis. Negative for Helicobacter by immunohistochemistry. Negative for intestinal metaplasia. Negative for dysplasia and malignancy. [facility] 05/18/2019 1528 Local . 02 Electronically signed: . Yolette Kline MD, Pathologist NPI- [id number] . 01 Gross description: . GASTRITIS BIOPSY: Received in formalin are 2 fragment(s) of kaur, soft tissue measuring 0.1 x 0.1 x 0.1 cm in aggregate which is entirely submitted and submitted entirely in 1 cassette(s) /[facility] 05/14/2019 1644 Local . 02 Microscopic: . An immunohistochemical stain was performed to evaluate for Helicobacter organisms and is negative. The control stain showed appropriate reactivity. . * This test was developed and its performance characteristics determined by [facility]. It has not been cleared or approved by the U.S. Food and Drug Administration. The FDA has determined that such clearance or approval is not necessary. This test is used for clinical purposes. It should not be regarded as investigational or for research. . 02 Pathologist provided ICD-10: R10.9 . 02 CPT . 436780, [id number] Performed at: 01 [facility] [address], [place], [place] [id number] MD Shmuel Hardin MD Phone: [phone] Performed at: 02 [facility] [address] [place], [place] [id number] MD Yolette Kline MD Phone: [phone]
[2019-05-13] MEDS: SODIUM CHLORIDE 0.9% 1,000 ML 200 ML IV ×4 (00:14→13:30)
[2019-05-13 06:09] LABS: Add Manual Diff / Slide Review NO; Basophils Absolute Auto 100 /uL (0-100); Basophils Percent Auto 0.8 % (0-2); Eosinophils Absolute Auto 300 /uL (0-450); Eosinophils Percent Auto 5.5 % (2-4); Hematocrit 31.9 % (41-53); Hemoglobin 10.9 g/dL (13.5-17.5); Lymphocytes Absolute Auto 2400 /uL (1100-4500); Lymphocytes Percent Auto 38.5 % (25-40); Mean Corpuscular HGB Conc 34.3 % (30-36); Mean Corpuscular Hemoglobin 28.4 PG (26-34); Mean Corpuscular Volume 82.8 fL (80-100); Monocytes Absolute Auto 400 /uL (0-900); Monocytes Percent Auto 6.3 % (3-14); Neutrophils Absolute Auto 3100 /uL (1500-7000); Neutrophils Percent Auto 48.9 % (50-75); Platelet Count 216 X10^3/uL (150-400); Red Blood Cell Count 3.85 X10^6/uL (4.5-5.9); Red Cell Distribution Width 13.1 % (11.6-14.8); White Blood Cell Count 6.3 X10^3/uL (4.5-11.0)
--- NOTE | 2019-05-13 06:30 | PC.NURSE ---
LATE ENTRY- 05/12- Calf SCD's to BLE not placed, pt indep in room receiving bowel prep, frequently up to BR at least every 30 mins. Pt agreeable.
[2019-05-13] MEDS: PANTOPRAZOLE 40 MG VIAL IV (08:18)
--- NOTE | 2019-05-13 08:45 | PC.NURSE ---
Addendum entered by Jennifer Rodriguez R.N. 05/13/19 15:42: Report called to RN Coordinator Massiel, and than given to this information writer. Pt arrived back to unit from ENDO at 1435, pt seen at 1440, denies pain, states has slight discomfort to throat, asking for fluids and food. Denies nausea. PIV remains S/L'd. Pt instructed on having soft foods, easy to digest, eating slowly, chewing food well. Pt agreeable. Pt's grandfather at bedside aslo. Pt states is ready to go home. As of 1534, pt has voided, OOB indep without dizziness or light-headedness. Tolerated pudding and water. Addendum entered by Jennifer Rodriguez R.N. 05/13/19 12:07: pt left around 1140 via bed to OR for procedure. LATASHA Beal assisted at this time. Original Note: Day Shift- Pt slightly anxious regarding procedure today, aware of timing of 1215 and that may change, will check pt updated. IVF at 200mls/hr per order, remains NPO, pt did not want mouth swabs or moisturizer at this time. Pt reports having small yellow loose BM's with dark pieces. Denies abd cramping, pain, nausea. Pt states I just want it done. regarding the procedure and wants to go home. support provided. Call light within reach. Pt indep in room with steady gait, denies light-headedness or dizziness.
[2019-05-13] MEDS: LIDOCAINE 4% SOLN 50 ML 20 ML TOP (12:18)
--- NOTE | 2019-05-13 12:41 | PM.PREOP ---
Pre-operative Note Interval Note History & Physical reviewed/Exam performed by Physician: Yes Changes to H&P: No ASA Class (for procedural sedation): I
[2019-05-13] MEDS: fentaNYL 250 MCG/5 ML INJ IV (13:02)
[2019-05-13] MEDS: MIDAZOLAM 5 MG/5 ML VIAL IV (13:02)
--- NOTE | 2019-05-13 13:11 | P.DS_ITS ---
History of Present Illness History of Present Illness Date Patient Seen: 05/12/19 Chief complaint: BLACK STOOLS RED Narrative: Written by Alexi SABA: Mr. Reinaldo Portillo is a 24-year-old male patient with history significant for asthma and left TMJ pain presents to the ER with bloody stools. Patient states he had an acute onset of symptoms at 5:00 p.m. with lower abdominal pain that he describes as an intense ache. He went to the bathroom and passed bloody stool that he describes as black and crimson. With that he had associated symptoms of acute onset of dizziness, diaphoresis and nausea. He states he laid on the floor for approximately 20 minutes after which his systems improved and he had another bloody stool. He has had no hematemesis and has no personal or family history of GI problems and has never experienced bleeding of this nature before. He does have hemorrhoids. He also informs me he he takes ibuprofen approximately 3 times per week. He had no antecedent complaints or symptoms and was is in usual state health prior to his bloody stool. Reports no complaints of fevers or chills, chest pain or palpitations, shortness of breath or cough. He does have a history of asthma and uses an albuterol inhaler approximately once every other week. Reports no recent change in bowel habits and has no urinary difficulties. He reports no extremity or joint pains. Upon arrival in the ER the patient is afebrile with temperature 97.8?, heart rat e of 95, blood pressure 129/81, respirations 15 saturating 96% on room air. Patient underwent laboratory testing finding an initial white count of 12.6, hemoglobin of 14 1 and hematocrit of 42 and platelets 278. On a subsequent recheck 3 hours later his hemoglobin had dropped to 12.9 and hematocrit to 37.5. His stool is guaiac positive. His chemistries are within normal limits, his BUN is 32 and creatinine 0.8. His nonfasting glucose is 100. His coagulation studies are within normal ranges as are his liver function. The ER consulted Dr. Dunn for evaluation of GI bleeding. He received a dose of Protonix 40 mg in the ER and is admitted for serial lab testing and evaluation of GI bleeding by General surgery. Discharge Providers Provider Date of admission: 05/12/19 00:48 Discharge Date: 05/13/19 Consults: 05/12/19 01:29 Consult to Dietitian, Adult Routine Comment: Reason For Exam: GI bleeding Consult to Discharge Planning Routine Comment: Consult to Physician Routine Comment: Consulting Provider: Kashmir Dunn Reason for consultation: GI bleed Has provider been notified: Yes 05/12/19 08:05 Consult to General Surgery Routine Comment: Consulting Provider: Kashmir Dunn Reason for consultation: GI bleed Has provider been notified: Yes Discharge provider: Anali Camilo DO Summary Hospital Course Hospital Course: Reinaldo Portillo is a 24-year-old male who had precipitous onset of GI bleeding with melanotic stool without prodromal symptoms. 1. Acute GI bleed with acute blood loss anemia. present on admission, active -Patient presented with melanotic stool and continued to have GI bleeding in the ED. Patient also had bilateral lower quadrant pain and epigastric pain on palpation. -Patient uses ibuprofen 3 times weekly and recommended he discontinue use of NSAIDs. -CT exam of abdomen and pelvis did not demonstrate any acute intrabdominal findings to explain patient's pain or bleed. -Initial hemoglobin 12.5. Repeat 10.9 which was likely partially dilutional. Transfusion goal < 7.0. No recurrent bleeding or melanotic stool. -Consulted general surgery, Dr. Dunn, who performed EGD and found gastric ulc er which was felt to be source of bleed. Recommended continued PPI and hemodynamically stable and appropriate for discharge. -Continued Protonix 40 mg twice daily. 2. Mild persistent asthma, present on admission. Stable. -Patient asymptomatic denies complaints shortness of breath cough or wheezing, the patient is on room air saturating 96-98%. -Ordered albuterol 2 puffs every 4 hours as needed for shortness of breath or wheezing. Exam Vital Signs (past 8 hours): - 05/13/19 07:40 05/13/19 07:45 05/13/19 08:20 Temperature 97.2 F L Pulse Rate 71 66 Respiratory Rate 16 18 Blood Pressure 124/72 Pulse Oximetry 98 100 98 05/13/19 11:45 05/13/19 12:00 05/13/19 13:09 Temperature 97.4 F L 98.0 F 97.8 F Pulse Rate 81 61 82 Respiratory Rate 16 15 14 Blood Pressure 138/79 175/69 H 96/50 L Pulse Oximetry 100 98 92 Fraction of Inspired Oxygen 21 Oxygen Delivery Method Nasal Cannula Oxygen Flow Rate 3 Narrative Exam Narrative: General: Young male sitting in bed and in no acute distress, well-developed, well-nourished, appropriately interactive. HEENT: Normocephalic, atraumatic. External ears without defect. Pupils equal, round, and reactive to light and accommodation. Anicteric sclerae, moist con junctivae, and no lid lag. Oropharynx free of erythema and cobble stoning with moist mucosa. Neck: Supple with full range of motion. No jugular venous distension. No bruits. No lymphadenopathy or thyromegaly. Cardiovascular: Regular rate and rhythm without murmurs, rubs, or gallops appreciated Pulmonary: Clear to auscultation bilaterally without crackles, wheezes, or rhonchi. Normal respiratory effort with no use of accessory muscles. Abdomen: Soft, bowel sounds present, nontender, nondistended. No hepatosplenomegaly or masses appreciated. Extremities: No clubbing, cyanosis, or edema. Skin: Normal temperature, turgor, and texture; no rash, ulcers, or subcutaneous nodules appreciated. Neurological: Cranial nerves grossly intact. Normal muscle strength, tone, and bulk. Reflexes, coordination, and sensory function within normal limits. No known gait impairment. Psychiatric: Normal mood and affect. Alert and oriented to person, place, and time. Objective Labs Result Diagrams: 05/13/19 05:04 05/12/19 05:09 Labs: Laboratory Results - last 24 hr 05/13/19 05:04 WBC 6.3 RBC 3.85 L Hgb 10.9 L Hct 31.9 L MCV 82.8 MCH 28.4 MCHC 34.3 RDW 13.1 Plt Count 216 Neut % (Auto) 48.9 L Lymph % (Auto) 38.5 [place] % (Auto) 6.3 Eos % (Auto) 5.5 H Baso % (Auto) 0.8 Neut # (Auto) 3100 Lymph # (Auto) 2400 [place] # (Auto) 400 Eos # (Auto) 300 Baso # (Auto) 100 Discharge Plan Discharge Plan Patient Disposition: Home Discharge comment: You are being discharged home. You had an ulcer in your stomach which is starting to heal. You have been prescribed Protonix 40 mg twice daily for 4 weeks to completely heal your ulcer. Please avoid NSAIDs (ibuprofen, Aleve, Advil, Motrin, meloxicam, naproxen, indomethacin ect). Discharge Med Rec/Prescriptions Prescriptions: New pantoprazole 40 mg tablet,delayed release (DR/EC) 40 mg PO BID Qty: 60 RF: 0 ondansetron 4 mg tablet,disintegrating 4 mg PO Q8H PRN (Reason: nausea and vomiting) Qty: 10 RF: 0 Continued albuterol sulfate 90 mcg/actuation Hfa Aerosol Inhaler 2 puff INHALATION Q4-6H PRN (Reason: Shortness Of Breath Or Wheezing) RF: 0 Provider Discharge Instructions Diet: Diet as Tolerated Activity: Activity as tolerated Visit Report/Discharge Packet Instructions: Colonoscopy, Upper GI Endoscopy, Pantoprazole Discharge Data Attending Provider: Alexi Wahl Admit Date/Time: 05/12/19 00:48 Discharges patient from system. Discharge Date/Time: 05/13/19 18:25 Quality VTE Deep Vein Thrombosis/Pulmonary Embolism Present on Admission: No
--- NOTE | 2019-05-13 13:18 | PM.OP.ENDO ---
Operative Date/Time/Diagnoses Date of procedure: 05/13/19 Time of procedure: 13:18 Pre-op diagnosis: GI bleed Post-op diagnosis: other (Gastric ulcer) Procedure & Clinicians Study performed: Esophagoduodenoscopy Same procedure as scheduled: Yes Indications: 24-year-old male on high doses of ibuprofen recently presents with a melanotic stools Surgeon: Kashmir Dunn Procedure Notes SCOAP/Timeout: Performed Procedure in detail: The scope was carefully inserted into the mouth and advanced through the esophagus into the stomach. There is some bloody gastric content within the stomach that was suctioned. The pylorus was intubated in the 1st portion of the duodenum was inspected and was negative for ulcerative disease. On the antrum of the stomach there was a healing 3mm gastric ulcer. There was no visible vessel no active bleeding there was some adherent clot. Biopsy was taken of the ulceration and was hemostatic. The scope was retroflexed and demonstrated the small hiatal hernia. The scope was withdrawn through the esophagus to the Z-line was identified and was negative for ulceration or Phoenix's. Patient tolerated procedure well Scope withdrawal time: NA Sedation minutes: 8 Findings: gastric ulcer Specimen(s): other (gastric ulcer) Complications: none Impression: Gastric ulcer Post-procedure Recommendations: Continue medication(s) (protonix 40 mg BID) Follow up: as needed Disposition: observation
--- NOTE | 2019-05-13 13:47 | SUR.PHASEI ---
Patient somnolent arouses to voice. Hypotensive with SBP upper 80's.
--- NOTE | 2019-05-13 15:48 | DIET.PN ---
Dietary Progress Note Assessment: 24y M referred to nutrition r/t GI bleed. Pt has TMJ which radiates into ears causing px and inflammation stemming from a wisdom tooth extraction. Unable to get corrective surgery at this time, started taking ibuprofen 800mg every other day to manage px. Endo found healing bleeding ulcer in stomach r/t ibuprofen use. Pt works 4 10h shifts/w at [employer] where he doesn't pack a lunch and is reliant on vending machines and eating out. These foods tend to be highly refined, high in sugar and unhealthy fats. Pt regularly eats cheeseburgers, pizza, pad danish. HT: 167.6cm WT: 93.9kg BMI: 33.4 Nutrition Diagnosis: Undesirable food choices r/t lack of nutrition knowlege for managing inflammation aeb bleeding ulcer d/t reliance on ibuprofen for TMJ px, reliance on convenience foods, intake of inflammatory foods. Interventions: Educated pt on Anti-inflammatory foods focusing on healthy fats and increasing consumption of fruits and vegetables. Pt likes guacamole and will consume it more, will snack on unsalted sunflower and pumpkin seeds. Will choose bison, amin or grass-fed burgers over standard hamburger. Pt will use olive and avocado oil for cooking at home. Pt will eat more fresh fruits and vegetables as snacks. Diet Order: General EER: 22ookcal, 85g PRO (0.9g/kg adult), 2.8L fluids Monitoring/Evaluations: as requested
--- NOTE | 2019-05-13 16:01 | CM.DPNOTE ---
DC Note: Met w/pt and his Aunt at bedside this afternoon, pt will be DC back home this afternoon w/ family to assist as needed. Pt has been dx w/gastric ulcer, found after EGD today. Pt has questions about his coverage under [employer], asks how much he will be charged, he has approx $1,500 deductible, he has paid appox $600 and pays 20% of outpt visits (80/20 coverage). This MANAGER CON[employer]ION explained that his policy coverage and the cost of this hospitalization stay is unknown to this MANAGER CON[employer]ION but strongly encouraged him to contact patient accts once he received his bill to ask about david application and/or a payment plan for any outstanding bill. Pt/family appreciative and have no further questions or needs. SHANNAN Healy
[2019-05-13] MEDS: ONDANSETRON 4 MG ODT PO (16:59)
--- NOTE | 2019-05-13 18:34 | PC.NURSE ---
Discharge Note Pt A&O, VSS, no complaints of pain/discomfort. Pt discharge instructions given, no questions/concerns. Scripts for Protonix and Zofran sent to pt's pharmacy. Pt taken down w/ discharge instructions and belongings via wheelchair to [facility].
== END 2019-05-13 18:25 | disposition home or self-care (01) ==
LOC: ED 20:38 → AC 05-12 00:49
PROVIDERS: Internal Medicine; Surgery; Admitting Provider Nurse Practitioner Adult Health; Emergency Provider Emergency Medicine; Visit Provider Nurse Practitioner Adult Health
PROC: 0DJ08ZZ Inspection of Upper Intestinal Tract, Via Natural or Artificial Opening Endoscopic (ICD-10-PCS; CPT 43235; principal; 2019-05-13 11:45)
DX: K25.4 Chronic or unspecified gastric ulcer with hemorrhage (principal); K92.1 Melena; J45.909 Unspecified asthma, uncomplicated; K44.9 Diaphragmatic hernia without obstruction or gangrene
CPT/HCPCS: 43239; 36415; 74177; 80048; 80053; 81003; 83735; 85025; 85610; 85730; 86677; 86850; 86900; 86901; 93005; 93010; 94760; 96374; 96376; 99152; 99219; 99283; 99285; G0378; C9113; J2250; J3010; Q9967

== ENCOUNTER 2019-05-16 04:46 | Inpatient (IN) | payer OTHER, SELFPAY ==
[2019-05-12 01:25] VITALS: BMI 33.7
[2019-05-16] VITALS (18 sets, daily range): BP systolic 109–143; BP diastolic 52–81; PULSE 59–102; RESP 8–18; TEMP 35.8–36.8; O2SAT 92–100; BMI 33.5
[2019-05-16 05:20] LABS: Add Manual Diff / Slide Review NO; Basophils Absolute Auto 100 /uL (0-100); Basophils Percent Auto 0.6 % (0-2); Eosinophils Absolute Auto 200 /uL (0-450); Eosinophils Percent Auto 1.8 % (2-4); Hematocrit 33.1 % (41-53); Hemoglobin 11.6 g/dL (13.5-17.5); Lymphocytes Absolute Auto 2000 /uL (1100-4500); Lymphocytes Percent Auto 15.7 % (25-40); Mean Corpuscular Hemoglobin 28.2 PG (26-34); Mean Corpuscular Volume 80.7 fL (80-100); Monocytes Absolute Auto 500 /uL (0-900); Monocytes Percent Auto 4.3 % (3-14); Neutrophils Absolute Auto 9900 /uL (1500-7000); Neutrophils Percent Auto 77.6 % (50-75); Platelet Count 371 X10^3/uL (150-400); Red Cell Distribution Width 13.1 % (11.6-14.8); White Blood Cell Count 12.8 X10^3/uL (4.5-11.0)
--- NOTE | 2019-05-16 05:28 | ED.GIBLEED ---
HPI - GI Bleed <Jacqueline Mcdaniels DO - Last Filed: 05/18/19 07:59> General Chief complaint: GI Bleed Stated complaint: nausea fatigue diarrhea bleeding from rectum Time Seen by Provider: 05/16/19 04:55 Source: patient Mode of arrival: Ambulatory Limitations: no limitations History of Present Illness HPI Narrative: This is a 24-year-old male comes to the emergency department with complaint of rectal bleeding. Patient was recently seen here in the hospital and admitted. Had colonoscopy and was noted to have an ulcer that appeared to be ?feeling?. Patient states he was started on a PPI which he has been taking daily. Patient states that he has felt a little lightheaded but not had any syncope. He felt a little sweaty and unwell while having a bowel movement this morning he has had 1 episode of black tarry stool. He denies any vomiting but has felt a little nauseated. He denies any abdominal pain at this time. Patient denies any urinary issues. Patient states that he was taking quite a bit of ibuprofen before he had his scope and has since stopped. He is not on any other medications besides the pantoprazole. Patient came in this morning because he was having the black tarry stools and was concerned for additional bleeding. Related Data Home Medications Medication Instructions Recorded Confirmed albuterol sulfate 2 puff INHALATION Q4-6H PRN 05/12/19 05/16/19 Previous Rx's Medication Instructions Recorded ondansetron 4 mg PO Q8H PRN #10 tab 05/13/19 pantoprazole 40 mg PO BID #60 tab 05/13/19 Allergies Allergy/AdvReac Type Severity Reaction Status Date / Time aspirin [ASPIRIN] Allergy Mild SHAKES, CHERY Verified 05/11/19 18:49 oxycodone [OXYCODONE] Allergy Unknown HIVES=PERCO Verified 05/11/19 18:49 CET Review of Systems <DO Miranda Elena Last Filed: 05/18/19 07:59> Review of Systems ROS Unobtainable: All systems reviewed & are unremarkable except as noted in HPI and below Constitutional Constitutional: Denies chills, Reports excessive sweating, Denies fever(s), Denies lethargy and Denies weakness Cardiovascular Cardiovascular: Denies chest pain, Denies syncope, Denies edema, Reports lightheadedness, Denies dyspnea and Denies dyspnea on exertion Respiratory Respiratory: Denies dyspnea and Denies dyspnea on exertion Gastrointestinal Gastrointestinal: Denies abdominal pain, Reports melena (x1), Denies hematochezia, Denies change in bowel habits, Denies constipation, Reports diarrhea (x1), Denies nausea and Denies vomiting Genitourinary Genitourinary: Denies hematuria, Denies difficulty urinating, Denies dysuria, Denies flank pain, Denies urinary frequency, Denies urinary incontinence and Denies urinary urgency Neurologic Neurologic: Denies syncope and Denies weakness Endocrine Endocrine: Reports excessive sweating PFSH <Jacqueline Mcdaniels DO - Last Filed: 05/18/19 07:59> Medical History Arthralgia of left temporomandibular joint (Acute) Asthma (02/28/14) Heart murmur on physical examination (Inactive) Surgical History History of eye surgery (Acute) No pertinent past surgical history (Acute) Social History household members: friend(s) Smoking Status: Never smoker Social History household members: friend(s) Smoking Status: Never smoker Exam <Jacqueline Mcdaniels DO - Last Filed: 05/18/19 07:59> Narrative Exam Narrative: GENERAL: Alert and oriented x three, well-nourished male appears slightly pale. HEENT: Head normocephalic, atraumatic, EOMI, pupils reactive, face symmetric, mildly pink conjunctiva, moist mucous membranes NECK: Supple, full range of motion CARDIOVASCULAR: Regular rate and rhythm without murmurs, rubs or gallops. RESPIRATORY: Breath sounds equal bilaterally, no wheezes rales or rhonchi. ABDOMEN: Soft, nontender. Normoactive bowel sounds all 4 quadrants. No guarding or rebound, rigidity, no mass. Patient politely defers rectal exam. : No CVA tenderness EXTREMITIES: Normal range of motion, no clubbing or edema. Neurovascularly intact NEUROLOGICAL: Cranial nerves II through XII grossly intact. Moving all extremities SKIN: Warm, dry, no petechiae, no rashes or lesions. Initial Vital Signs Initial Vital Signs: Vital Signs Temperature 97.6 F 05/16/19 04:48 Pulse Rate 94 H 05/16/19 04:48 Respiratory Rate 16 05/16/19 04:48 Blood Pressure 113/78 05/16/19 04:48 Pulse Oximetry 99 05/16/19 04:48 <Marga Welsh, DO - Last Filed: 05/16/19 14:14> Initial Vital Signs Initial Vital Signs: Vital Signs Temperature 97.6 F 05/16/19 04:48 Pulse Rate 94 H 05/16/19 04:48 Respiratory Rate 16 05/16/19 04:48 Blood Pressure 113/78 05/16/19 04:48 Pulse Oximetry 99 05/16/19 04:48 Course <Jacqueline Mcdaniels, DO - Last Filed: 05/18/19 07:59> Orders Ordered: Acetaminophen (Tylenol) 650 mg PO Q6HR PRN PRN Reason: Pain, Mild (1-3) Amoxicillin (Trimox) 1,000 mg PO BID [facility] Admin: 05/17/19 20:48 Dose: 1,000 mg Documented by: Admin: 05/17/19 09:15 Dose: 1,000 mg Documented by: Admin: 05/16/19 22:35 Dose: 1,000 mg Documented by: MINA Clarithromycin (Biaxin) 500 mg PO BID [facility] Admin: 05/17/19 20:48 Dose: 500 mg Documented by: Admin: 05/17/19 09:15 Dose: 500 mg Documented by: Admin: 05/16/19 22:36 Dose: Not Given Documented by: MINA Dextrose/Sodium Chloride (Dextrose 5%-0.45% Ns) 1,000 mls @ 125 mls/hr IV CONT [facility] Last Admin: 05/18/19 04:40 Dose: 125 mls/hr Documented by: Infusion: 05/18/19 04:40 Dose: 125 mls/hr Documented by: Admin: 05/17/19 20:49 Dose: 125 mls/hr Documented by: Infusion: 05/17/19 19:52 Dose: 125 mls/hr Documented by: Admin: 05/17/19 11:52 Dose: 125 mls/hr Documented by: Infusion: 05/17/19 03:10 Dose: 125 mls/hr Documented by: Admin: 05/16/19 19:10 Dose: 125 mls/hr Documented by: MINA Naloxone HCl (Narcan) 0.2 mg IV Q2MIN PRN PRN Reason: Opiate Reversal Ondansetron HCl (Zofran) 4 mg IV Q4HR PRN PRN Reason: Nausea And Vomiting Pantoprazole Sodium (Protonix) 40 mg IV BID [facility] Last Admin: 05/17/19 20:48 Dose: 40 mg Documented by: Admin: 05/17/19 09:13 Dose: 40 mg Documented by: Admin: 05/16/19 22:26 Dose: 40 mg Documented by: MINA Discontinued Medications Epinephrine HCl (Adrenalin) 1 mg IV NOW ONE Stop: 05/16/19 18:05 Last Admin: 05/16/19 18:05 Dose: 1 mg Documented by: CUONG Fentanyl (Sublimaze) 50 mcg IV Q5MIN PRN PRN Reason: Pain, Moderate (4-6) Hydromorphone HCl (Dilaudid) 0.5 mg IV Q5MIN PRN PRN Reason: Pain, Moderate (4-6) Sodium Chloride (Normal Saline 0.9%) 1,000 mls @ 1,000 mls/hr IV BOLUS ONE Stop: 05/16/19 07:13 Last Infusion: 05/16/19 07:25 Dose: 0 mls/hr Documented by: Admin: 05/16/19 06:37 Dose: 1,000 mls/hr Documented by: FRANCIE Pantoprazole Sodium 80 mg/ (Sodium Chloride) 100 mls @ 10 mls/hr IV CONT [facility] Last Admin: 05/16/19 09:14 Dose: 8 mg/hr, 10 mls/hr Documented by: KENNY Lactated Ringer's (Lactated Ringers) 1,000 mls @ 42 mls/hr IV CONT [facility] Last Admin: 05/16/19 18:52 Dose: 42 mls/hr Documented by: Infusion: 05/16/19 18:52 Dose: 42 mls/hr Documented by: Admin: 05/16/19 14:38 Dose: 42 mls/hr Documented by: BLAKE Metoclopramide HCl (Reglan) 10 mg IV NOW PRN PRN Reason: Nausea And Vomiting Morphine Sulfate (Morphine) 4 mg IV NOW ONE Stop: 05/16/19 19:26 Last Admin: 05/16/19 20:10 Dose: 4 mg Documented by: MINA Ondansetron HCl (Zofran) 4 mg IV NOW PRN PRN Reason: Nausea And Vomiting Pantoprazole Sodium (Protonix) 80 mg IV NOW ONE Stop: 05/16/19 05:33 Last Admin: 05/16/19 05:36 Dose: 80 mg Documented by: FRANCIE Pantoprazole Sodium (Protonix) 40 mg IV NOW ONE Stop: 05/16/19 08:57 Last Admin: 05/16/19 09:05 Dose: Not Given Documented by: KENNY Vital Signs Vital signs: Vital Signs - 8 hr 05/16/19 06:30 05/16/19 07:00 05/16/19 09:36 Pulse Rate 98 H 59 L 80 Respiratory Rate 16 16 Blood Pressure [Right Arm] 112/76 117/52 L 130/79 Pulse Oximetry 99 100 100 <Marga Welsh, - Last Filed: 05/16/19 14:14> Orders Ordered: Acetaminophen (Tylenol) 650 mg PO Q6HR PRN PRN Reason: Pain, Mild (1-3) Amoxicillin (Trimox) 1,000 mg PO BID [facility] Last Admin: 05/17/19 20:48 Dose: 1,000 mg Documented by: Admin: 05/17/19 09:15 Dose: 1,000 mg Documented by: Admin: 05/16/19 22:35 Dose: 1,000 mg Documented by: MINA Clarithromycin (Biaxin) 500 mg PO BID [facility] Last Admin: 05/17/19 20:48 Dose: 500 mg Documented by: Admin: 05/17/19 09:15 Dose: 500 mg Documented by: Admin: 05/16/19 22:36 Dose: Not Given Documented by: MINA Dextrose/Sodium Chloride (Dextrose 5%-0.45% Ns) 1,000 mls @ 125 mls/hr IV CONT [facility] Last Admin: 05/18/19 04:40 Dose: 125 mls/hr Documented by: Infusion: 05/18/19 04:40 Dose: 125 mls/hr Documented by: Admin: 05/17/19 20:49 Dose: 125 mls/hr Documented by: Infusion: 05/17/19 19:52 Dose: 125 mls/hr Documented by: Admin: 05/17/19 11:52 Dose: 125 mls/hr Documented by: Infusion: 05/17/19 03:10 Dose: 125 mls/hr Documented by: Admin: 05/16/19 19:10 Dose: 125 mls/hr Documented by: MINA Naloxone HCl (Narcan) 0.2 mg IV Q2MIN PRN PRN Reason: Opiate Reversal Ondansetron HCl (Zofran) 4 mg IV Q4HR PRN PRN Reason: Nausea And Vomiting Pantoprazole Sodium (Protonix) 40 mg IV BID [facility] Last Admin: 05/17/19 20:48 Dose: 40 mg Documented by: Admin: 05/17/19 09:13 Dose: 40 mg Documented by: Admin: 05/16/19 22:26 Dose: 40 mg Documented by: MINA Discontinued Medications Epinephrine HCl (Adrenalin) 1 mg IV NOW ONE Stop: 05/16/19 18:05 Last Admin: 05/16/19 18:05 Dose: 1 mg Documented by: CUONG Fentanyl (Sublimaze) 50 mcg IV Q5MIN PRN PRN Reason: Pain, Moderate (4-6) Hydromorphone HCl (Dilaudid) 0.5 mg IV Q5MIN PRN PRN Reason: Pain, Moderate (4-6) Sodium Chloride (Normal Saline 0.9%) 1,000 mls @ 1,000 mls/hr IV BOLUS ONE Stop: 05/16/19 07:13 Last Infusion: 05/16/19 07:25 Dose: 0 mls/hr Documented by: Admin: 05/16/19 06:37 Dose: 1,000 mls/hr Documented by: FRANCIE Pantoprazole Sodium 80 mg/ (Sodium Chloride) 100 mls @ 10 mls/hr IV CONT [facility] Last Admin: 05/16/19 09:14 Dose: 8 mg/hr, 10 mls/hr Documented by: KENNY Lactated Ringer's (Lactated Ringers) 1,000 mls @ 42 mls/hr IV CONT [facility] Last Admin: 05/16/19 18:52 Dose: 42 mls/hr Documented by: Infusion: 05/16/19 18:52 Dose: 42 mls/hr Documented by: Admin: 05/16/19 14:38 Dose: 42 mls/hr Documented by: BLAKE Metoclopramide HCl (Reglan) 10 mg IV NOW PRN PRN Reason: Nausea And Vomiting Morphine Sulfate (Morphine) 4 mg IV NOW ONE Stop: 05/16/19 19:26 Last Admin: 05/16/19 20:10 Dose: 4 mg Documented by: MINA Ondansetron HCl (Zofran) 4 mg IV NOW PRN PRN Reason: Nausea And Vomiting Pantoprazole Sodium (Protonix) 80 mg IV NOW ONE Stop: 05/16/19 05:33 Last Admin: 05/16/19 05:36 Dose: 80 mg Documented by: FRANCIE Pantoprazole Sodium (Protonix) 40 mg IV NOW ONE Stop: 05/16/19 08:57 Last Admin: 05/16/19 09:05 Dose: Not Given Documented by: KENNY Vital Signs Vital signs: Vital Signs - 8 hr 05/16/19 06:30 05/16/19 07:00 05/16/19 09:36 Pulse Rate 98 H 59 L 80 Respiratory Rate 16 16 Blood Pressure [Right Arm] 112/76 117/52 L 130/79 Pulse Oximetry 99 100 100 MDM - GI Bleed <Jacqueline Mcdaniels DO - Last Filed: 05/18/19 07:59> Lab Data Attestation: I reviewed the patient's lab results. Result diagrams: 05/18/19 05:25 05/18/19 05:25 Labs: Lab Results 05/16/19 05/16/19 05/16/19 Range/Units 05:07 05:07 05:07 WBC 12.8 H (4.5-11.0) X10^3/uL RBC 4.10 L (4.5-5.9) X10^6/uL Hgb 11.6 L (13.5-17.5) g/dL Hct 33.1 L (41-53) % MCV 80.7 (80-100) fL MCH 28.2 (26-34) PG MCHC 35.0 (30-36) % RDW 13.1 (11.6-14.8) % Plt Count 371 (150-400) X10^3/uL Neut % (Auto) 77.6 H (50-75) % Lymph % (Auto) 15.7 L (25-40) % Lyon % (Auto) 4.3 (3-14) % Eos % (Auto) 1.8 L (2-4) % Baso % (Auto) 0.6 (0-2) % Neut # (Auto) 9900 H (4143-0921) /uL Lymph # (Auto) 2000 (9699-0299) /uL Lyon # (Auto) 500 (0-900) /uL Eos # (Auto) 200 (0-450) /uL Baso # (Auto) 100 (0-100) /uL Sodium 138 (137-145) mmol/L Potassium 3.9 (3.4-5.1) mmol/L Chloride 102 (98-107) mmol/L Carbon Dioxide 23 (22-32) mmol/L BUN 33 H (9-20) mg/dL Creatinine 0.80 (0.66-1.25) mg/dL Estimated GFR > 60.0 (>60) mL/min BUN/Creatinine Ratio 41.3 H (6-22) Glucose 109 H (70-100) mg/dL Calcium 9.4 (8.4-10.2) mg/dL Total Bilirubin 0.6 (0.2-1.3) mg/dL AST 20 (17-59) IU/L ALT 27 (21-72) IU/L Alkaline Phosphatase 59 (38-126) U/L Total Protein 7.3 (6.3-8.2) g/dL Albumin 4.6 (3.5-5.0) g/dL Globulin 2.7 (1.7-4.1) g/dL Albumin/Globulin Ratio 1.7 (1.0-2.8) Lipase 78 (23-300) U/L Blood Type O Positive Antibody Screen Negative 05/16/19 Range/Units 08:10 WBC (4.5-11.0) X10^3/uL RBC (4.5-5.9) X10^6/uL Hgb 10.8 L (13.5-17.5) g/dL Hct 31.1 L (41-53) % MCV (80-100) fL MCH (26-34) PG MCHC (30-36) % RDW (11.6-14.8) % Plt Count (150-400) X10^3/uL Neut % (Auto) (50-75) % Lymph % (Auto) (25-40) % [place] % (Auto) (3-14) % Eos % (Auto) (2-4) % Baso % (Auto) (0-2) % Neut # (Auto) (2353-8641) /uL Lymph # (Auto) (1083-7030) /uL Lyon # (Auto) (0-900) /uL Eos # (Auto) (0-450) /uL Baso # (Auto) (0-100) /uL Sodium (137-145) mmol/L Potassium (3.4-5.1) mmol/L Chloride (98-107) mmol/L Carbon Dioxide (22-32) mmol/L BUN (9-20) mg/dL Creatinine (0.66-1.25) mg/dL Estimated GFR (>60) mL/min BUN/Creatinine Ratio (6-22) Glucose (70-100) mg/dL Calcium (8.4-10.2) mg/dL Total Bilirubin (0.2-1.3) mg/dL AST (17-59) IU/L ALT (21-72) IU/L Alkaline Phosphatase (38-126) U/L Total Protein (6.3-8.2) g/dL Albumin (3.5-5.0) g/dL Globulin (1.7-4.1) g/dL Albumin/Globulin Ratio (1.0-2.8) Lipase (23-300) U/L Blood Type Antibody Screen Point of Care Testing Stool Occult Blood Positive MDM Narrative Medical decision making narrative: Patient's labs show an elevated and white count, he does have a hemoglobin 11.4 which is improved from the 10.9 and he was at on the 26th and he was in the 12 range on the 24 and although he was 14 on the 24th. He has a little bit of 76% neutrophils. Patient's labs otherwise do not show major abnormalities. I spoke with Dr. Dia who is on for General surgery. Patient did have a ulcer noted in the antrum of the stomach which had some clot. Biopsy was taken. Patient has hemodynamically been stable. Discussed and plan for L of fluids and recheck of hemoglobin 1 hour after this and re-contacted with General surgery. Patient has had 1 additional melanotic stool in the department. Patient otherwise hemodynamically stable. awaiting repeat hemoglobin and plan to recontact Dr. Dia. Patient signed out to Dr. Welsh while awaiting repeat hemoglobin. <Marga Welsh, DO - Last Filed: 05/16/19 14:14> Lab Data Labs: Lab Results 05/16/19 05/16/19 05/16/19 Range/Units 05:07 05:07 05:07 WBC 12.8 H (4.5-11.0) X10^3/uL RBC 4.10 L (4.5-5.9) X10^6/uL Hgb 11.6 L (13.5-17.5) g/dL Hct 33.1 L (41-53) % MCV 80.7 (80-100) fL MCH 28.2 (26-34) PG MCHC 35.0 (30-36) % RDW 13.1 (11.6-14.8) % Plt Count 371 (150-400) X10^3/uL Neut % (Auto) 77.6 H (50-75) % Lymph % (Auto) 15.7 L (25-40) % [place] % (Auto) 4.3 (3-14) % Eos % (Auto) 1.8 L (2-4) % Baso % (Auto) 0.6 (0-2) % Neut # (Auto) 9900 H (1420-8404) /uL Lymph # (Auto) 2000 (5999-7554) /uL [place] # (Auto) 500 (0-900) /uL Eos # (Auto) 200 (0-450) /uL Baso # (Auto) 100 (0-100) /uL Sodium 138 (137-145) mmol/L Potassium 3.9 (3.4-5.1) mmol/L Chloride 102 (98-107) mmol/L Carbon Dioxide 23 (22-32) mmol/L BUN 33 H (9-20) mg/dL Creatinine 0.80 (0.66-1.25) mg/dL Estimated GFR > 60.0 (>60) mL/min BUN/Creatinine Ratio 41.3 H (6-22) Glucose 109 H (70-100) mg/dL Calcium 9.4 (8.4-10.2) mg/dL Total Bilirubin 0.6 (0.2-1.3) mg/dL AST 20 (17-59) IU/L ALT 27 (21-72) IU/L Alkaline Phosphatase 59 (38-126) U/L Total Protein 7.3 (6.3-8.2) g/dL Albumin 4.6 (3.5-5.0) g/dL Globulin 2.7 (1.7-4.1) g/dL Albumin/Globulin Ratio 1.7 (1.0-2.8) Lipase 78 (23-300) U/L Blood Type O Positive Antibody Screen Negative 05/16/19 Range/Units 08:10 WBC (4.5-11.0) X10^3/uL RBC (4.5-5.9) X10^6/uL Hgb 10.8 L (13.5-17.5) g/dL Hct 31.1 L (41-53) % MCV (80-100) fL MCH (26-34) PG MCHC (30-36) % RDW (11.6-14.8) % Plt Count (150-400) X10^3/uL Neut % (Auto) (50-75) % Lymph % (Auto) (25-40) % Lyon % (Auto) (3-14) % Eos % (Auto) (2-4) % Baso % (Auto) (0-2) % Neut # (Auto) (8201-1502) /uL Lymph # (Auto) (3813-1915) /uL Lyon # (Auto) (0-900) /uL Eos # (Auto) (0-450) /uL Baso # (Auto) (0-100) /uL Sodium (137-145) mmol/L Potassium (3.4-5.1) mmol/L Chloride (98-107) mmol/L Carbon Dioxide (22-32) mmol/L BUN (9-20) mg/dL Creatinine (0.66-1.25) mg/dL Estimated GFR (>60) mL/min BUN/Creatinine Ratio (6-22) Glucose (70-100) mg/dL Calcium (8.4-10.2) mg/dL Total Bilirubin (0.2-1.3) mg/dL AST (17-59) IU/L ALT (21-72) IU/L Alkaline Phosphatase (38-126) U/L Total Protein (6.3-8.2) g/dL Albumin (3.5-5.0) g/dL Globulin (1.7-4.1) g/dL Albumin/Globulin Ratio (1.0-2.8) Lipase (23-300) U/L Blood Type Antibody Screen Point of Care Testing Stool Occult Blood Positive MDM Narrative Medical decision making narrative: Patient signed out to me by Dr. Mcdaniels, seen evaluated by myself. Hemodynamically stable. Patient states he has had 3 bloody bowel movements 2 of which have been in the emergency department. He received 1 L of IV fluids recheck hemoglobin hematocrit did decrease slightly but is stable from his discharge. Dr. Dia updated on patient's situation and agrees with Protonix drip keep NPO. Dr. barboza, updated patient's symptoms test results agrees with admission Discharge Plan Departure Patient Disposition: Admitted as Observation Clinical Impression: Acute gastric ulcer with bleeding Discharge Date/Time: 05/16/19 11:12 Instructions: How to Prevent Pressure Ulcers, Ulcers (Alternative Therapy), Peptic Ulcer, DI for Gastric Ulcer, DI for Stomach Polyps Admit Date/Time: 05/16/19 10:15 Admit Provider: Luh Barboza
[2019-05-16 05:29] LABS: Alanine Aminotransferase 27 IU/L (21-72); Albumin 4.6 g/dL (3.5-5.0); Albumin Globulin Ratio 1.7 (1.0-2.8); Alkaline Phosphatase 59 U/L (38-126); Aspartate Aminotransferase 20 IU/L (17-59); BUN Creatinine Ratio 41.3 (6-22); Bilirubin Total 0.6 mg/dL (0.2-1.3); Blood Urea Nitrogen 33 mg/dL (9-20); Calcium 9.4 mg/dL (8.4-10.2); Carbon Dioxide 23 mmol/L (22-32); Chloride 102 mmol/L (98-107); Estimated Glomerular Filt Rate > 60.0 mL/min (>60); Globulin 2.7 g/dL (1.7-4.1); Glucose 109 mg/dL (70-100); HEMOLYSIS < 15 (0-50); Lipase 78 U/L (23-300); Potassium 3.9 mmol/L (3.4-5.1); Sodium 138 mmol/L (137-145); Total Protein 7.3 g/dL (6.3-8.2)
[2019-05-16] MEDS: PANTOPRAZOLE 40 MG VIAL 80 MG IV (05:36)
[2019-05-16] MEDS: SODIUM CHLORIDE 0.9% 1,000 ML 1000 ML IV (06:37)
[2019-05-16 08:36] LABS: Hematocrit 31.1 % (41-53); Hemoglobin 10.8 g/dL (13.5-17.5)
[2019-05-16] MEDS: PANTOPRAZOLE 80 MG in SODIUM CHLORIDE 0.9% 100 ML 10 ML IV (09:14)
--- NOTE | 2019-05-16 12:11 | PC.NURSE ---
PT ADMITTED FROM ED VIA WHEELCHAIR - HE IS ALERT/ORIENTED AND AMBULATORY. HE REPORTS BEING WOKEN UP WITH HAVING TO HAVE BM- IN WHICH HE PASSED WHAT FELT LIKE A NORMAL STOOL AND THEN WENT BACK TO BED FEELING NOT RIGHT UPON RETURNING TO BATHROOM HE PASSED LARGE AMOUNT DARK TARRY STOOL MIXEDD WITH DARK BLOOD - PT PROVIDED PICTURE OF SAME- DENIES NAUSEA DID CLAIN SOME LIGHTHEADEDNESS AT TIME- VSS, PROTONIX GTT INFUSING AND OTHERWISE BENIGN ASSESSMENT-
--- NOTE | 2019-05-16 14:12 | PM.HP.1 ---
History of Present Illness History of Present Illness Date Patient Seen: 05/16/19 Time Patient Seen: 14:00 Chief complaint: nausea fatigue diarrhea bleeding from rectum Narrative: The patient is a gentleman who was recently found to have a bleeding gastric ulcer. He was treated and and released from the hospital when his bleeding had ceased and his matter could stabilized. However he began having blood per rectum/black bowel movements again which continued through the early hours of the morning. He is brought back into the hospital and for further evaluation and treatment. Patient History Medical History Arthralgia of left temporomandibular joint (Acute) Asthma (02/28/14) Heart murmur on physical examination (Inactive) Surgical History History of eye surgery (Acute) No pertinent past surgical history (Acute) Social History household members: friend(s) Smoking Status: Never smoker Family & Social History Social History: household members friend(s) Safety & Behavioral: Feels Safe in Current Yes Environment Been Physically Hurt or No Threatened By a Person Tobacco & Substance use: Smoking Status Never smoker alcohol intake frequency holiday/special occasion Substance Use Type does not use Meds Home Medications and Allergies Home Medications Medication Instructions Recorded Confirmed Type albuterol sulfate 2 puff INHALATION Q4-6H PRN 05/12/19 05/12/19 History ondansetron 4 mg PO Q8H PRN #10 tab 05/13/19 Rx pantoprazole 40 mg PO BID #60 tab 05/13/19 Rx Allergies Allergy/AdvReac Type Severity Reaction Status Date / Time aspirin [ASPIRIN] Allergy Mild SHAKES, CHERY Verified 05/11/19 18:49 oxycodone [OXYCODONE] Allergy Unknown HIVES=PERCO Verified 05/11/19 18:49 CET Review of Systems Review of Systems Narrative: Patient denies any active breathing issue right now though he has a history of intermittent asthma. No cough. Patient is aware that he has a murmur that needs to be evaluated. No chest pain or other heart problems. Patient has not some slight upper abdominal discomfort but otherwise is pain free in the abdomen. No operations on his abdomen. No seizures or blackouts. Exam Vital Signs (past 8 hours): - 05/16/19 06:30 05/16/19 07:00 05/16/19 09:36 Temperature Pulse Rate 98 H 59 L 80 Respiratory Rate 16 16 Blood Pressure Blood Pressure [Right Arm] 112/76 117/52 L 130/79 Pulse Oximetry 99 100 100 05/16/19 12:17 Temperature 98.0 F Pulse Rate 82 Respiratory Rate 18 Blood Pressure 109/68 Blood Pressure [Right Arm] Pulse Oximetry 100 Oxygen Delivery Method Room Air Oxygen Flow Rate 0 Narrative Exam Narrative: Pleasant cooperative 24-year-old in no apparent distress. His eyes are nonicteric. Lungs are clear to auscultation without rales or rhonchi. Heart regular rate and rhythm he has a 3/6 systolic murmur heard best at the left sternal border without radiation into the neck. There are no nodes in the neck or supraclavicular areas. His abdomen is mildly protuberant soft. There is no tenderness or guarding. No hernias are appreciated. The patient is alert and oriented x3. Speech rate and content are appropriate. Objective Labs Result Diagrams: 05/16/19 08:10 05/16/19 05:07 Labs: Laboratory Results - last 24 hr 05/16/19 05/16/19 05/16/19 05:07 05:07 05:07 WBC 12.8 H RBC 4.10 L Hgb 11.6 L Hct 33.1 L MCV 80.7 MCH 28.2 MCHC 35.0 RDW 13.1 Plt Count 371 Neut % (Auto) 77.6 H Lymph % (Auto) 15.7 L [place] % (Auto) 4.3 Eos % (Auto) 1.8 L Baso % (Auto) 0.6 Neut # (Auto) 9900 H Lymph # (Auto) 2000 [place] # (Auto) 500 Eos # (Auto) 200 Baso # (Auto) 100 Sodium 138 Potassium 3.9 Chloride 102 Carbon Dioxide 23 BUN 33 H Creatinine 0.80 Estimated GFR > 60.0 BUN/Creatinine Ratio 41.3 H Glucose 109 H Calcium 9.4 Total Bilirubin 0.6 AST 20 ALT 27 Alkaline Phosphatase 59 Total Protein 7.3 Albumin 4.6 Globulin 2.7 Albumin/Globulin Ratio 1.7 Lipase 78 Blood Type O Positive Antibody Screen Negative 05/16/19 08:10 WBC RBC Hgb 10.8 L Hct 31.1 L MCV MCH MCHC RDW Plt Count Neut % (Auto) Lymph % (Auto) [place] % (Auto) Eos % (Auto) Baso % (Auto) Neut # (Auto) Lymph # (Auto) [place] # (Auto) Eos # (Auto) Baso # (Auto) Sodium Potassium Chloride Carbon Dioxide BUN Creatinine Estimated GFR BUN/Creatinine Ratio Glucose Calcium Total Bilirubin AST ALT Alkaline Phosphatase Total Protein Albumin Globulin Albumin/Globulin Ratio Lipase Blood Type Antibody Screen Assessment & Plan Assessment and plan (1) Acute gastric ulcer with bleeding: Current visit: Yes Status: Acute (2) Acute gastrointestinal bleeding: Problem details: Will proceed to repeat EGD. I discussed this with him. The possibility of therapeutic interventions such as injection, clip application or cautery were discussed with him. He appears to understand and wishes to proceed. He understands that this will be done under general anesthesia to protect his airway from aspiration. Current visit: No Status: Acute Quality VTE Deep Vein Thrombosis/Pulmonary Embolism Present on Admission: No
--- NOTE | 2019-05-16 14:20 | PM.PREOP ---
Pre-operative Note Interval Note History & Physical reviewed/Exam performed by Physician: Yes Changes to H&P: No
--- NOTE | 2019-05-16 14:21 | P.HP_ITS ---
History of Present Illness History of Present Illness Date Patient Seen: 05/16/19 Time Patient Seen: 14:22 Chief complaint: nausea fatigue diarrhea bleeding from rectum Narrative: This pleasant 24-year-old male was admitted at [facility] on discharged on 05/13/2019 for upper GI bleed. He underwent endoscopy which showed an ulcer without acute bleeding he remained stable and was discharged home. The biopsies are still pending. He was discharged home on proton pump inhibitor. Prior to this last admission he was taking ibuprofen 400 mg once daily every other day to treat symptoms of TMJ. He has been eating small meals and a bland diet and developed melanotic stool in the middle the night and phone the on-call physician who recommended he go to the ER. In the ER he was found to have anemia with evidence of gross melena and was admitted to the hospital for further evaluation. He was placed on a proton pump inhibitor drip and made NPO and is being seen by General surgery and the plan for EGD later this afternoon. He denies any other complaints. He is frustrated that this is an ongoing issue. Past medical history: 1. Reactive airway disease mild, intermittent with as needed albuterol 2. TMJ 3. 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 He lives with a roommate in [facility]. 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 Family history: Grandmother with sarcoma and history of gastric ulcer No other family history of GI abnormalities Patient History Medical History Arthralgia of left temporomandibular joint (Acute) Asthma (02/28/14) Heart murmur on physical examination (Inactive) Surgical History History of eye surgery (Acute) No pertinent past surgical history (Acute) Social History household members: friend(s) Smoking Status: Never smoker Family & Social History Social History: household members friend(s) Safety & Behavioral: Feels Safe in Current Yes Environment Been Physically Hurt or No Threatened By a Person Tobacco & Substance use: Smoking Status Never smoker alcohol intake frequency holiday/special occasion Substance Use Type does not use Meds Home Medications and Allergies Home Medications Medication Instructions Recorded Confirmed Type albuterol sulfate 2 puff INHALATION Q4-6H PRN 05/12/19 05/16/19 History ondansetron 4 mg PO Q8H PRN #10 tab 05/13/19 05/16/19 Rx pantoprazole 40 mg PO BID #60 tab 05/13/19 05/16/19 Rx Allergies Allergy/AdvReac Type Severity Reaction Status Date / Time aspirin [ASPIRIN] Allergy Mild SHAKES, CHERY Verified 05/11/19 18:49 oxycodone [OXYCODONE] Allergy Unknown HIVES=PERCO Verified 05/11/19 18:49 CET Review of Systems Review of Systems ROS Unobtainable: All systems reviewed & are unremarkable except as noted in HPI and below Exam Vital Signs (past 8 hours): - 05/16/19 06:30 05/16/19 07:00 05/16/19 09:36 Temperature Pulse Rate 98 H 59 L 80 Respiratory Rate 16 16 Blood Pressure Blood Pressure [Right Arm] 112/76 117/52 L 130/79 Pulse Oximetry 99 100 100 05/16/19 12:17 Temperature 98.0 F Pulse Rate 82 Respiratory Rate 18 Blood Pressure 109/68 Blood Pressure [Right Arm] Pulse Oximetry 100 Oxygen Delivery Method Room Air Oxygen Flow Rate 0 Narrative Exam Narrative: Patient is pale but sitting quietly in the bed alert and o riented x3 in no apparent distress with vital signs stable HEENT: Unremarkable Neck: Supple without adenopathy Chest: Clear to auscultation without wheezes rhonchi or crackles Cor: Regular rate and rhythm without any murmur Abdomen: Positive bowel sounds, soft, nontender, nondistended, no hepat osplenomegaly, mild midepigastric tenderness Extremities: No edema, pulses intact Neuro nonfocal Skin no rashes Objective Labs Result Diagrams: 05/16/19 08:10 05/16/19 05:07 Labs: Laboratory Results - last 24 hr 05/16/19 05/16/1919 05:07 05:07 05:07 WBC 12.8 H RBC 4.10 L Hgb 11.6 L Hct 33.1 L MCV 80.7 MCH 28.2 MCHC 35.0 RDW 13.1 Plt Count 371 Neut % (Auto) 77.6 H Lymph % (Auto) 15.7 L [place] % (Auto) 4.3 Eos % (Auto) 1.8 L Baso % (Auto) 0.6 Neut # (Auto) 9900 H Lymph # (Auto) 2000 [place] # (Auto) 500 Eos # (Auto) 200 Baso # (Auto) 100 Sodium 138 Potassium 3.9 Chloride 102 Carbon Dioxide 23 BUN 33 H Creatinine 0.80 Estimated GFR > 60.0 BUN/Creatinine Ratio 41.3 H Glucose 109 H Calcium 9.4 Total Bilirubin 0.6 AST 20 ALT 27 Alkaline Phosphatase 59 Total Protein 7.3 Albumin 4.6 Globulin 2.7 Albumin/Globulin Ratio 1.7 Lipase 78 Blood Type O Positive Antibody Screen Negative 05/16/19 08:10 WBC RBC Hgb 10.8 L Hct 31.1 L MCV MCH MCHC RDW Plt Count Neut % (Auto) Lymph % (Auto) [place] % (Auto) Eos % (Auto) Baso % (Auto) Neut # (Auto) Lymph # (Auto) [place] # (Auto) Eos # (Auto) Baso # (Auto) Sodium Potassium Chloride Carbon Dioxide BUN Creatinine Estimated GFR BUN/Creatinine Ratio Glucose Calcium Total Bilirubin AST ALT Alkaline Phosphatase Total Protein Albumin Globulin Albumin/Globulin Ratio Lipase Blood Type Antibody Screen Assessment & Plan Assessment & Plan narrative: 24-year-old male admitted for upper GI bleed, recurrent presumed secondary to gastric ulcer Plan: Admit to hospital for further treatment and evaluation General surgery has consulted and seen the patient and patient is NPO and scheduled for EGD later this afternoon Will continue with a proton pump inhibitor Assessment 2. Reactive airway disease, mild, intermittent Plan: No current issues. Will follow Quality VTE Deep Vein Thrombosis/Pulmonary Embolism Present on Admission: No
[2019-05-16] MEDS: LACTATED RINGERS 1,000 ML 42 ML IV ×2 (14:38→18:52)
--- NOTE | 2019-05-16 17:00 | SUR.HOLD ---
To OPD, onto stretcher, no pain, A&O.
[2019-05-16] MEDS: EPINEPHrine 1 MG/10 ML SYRINGE IV (18:05)
--- NOTE | 2019-05-16 18:19 | PM.OP.ENDO ---
Operative Date/Time/Diagnoses Date of procedure: 05/16/19 Time of procedure: 18:19 Pre-op diagnosis: Melena. Known gastric ulcer. Post-op diagnosis: same (Gastric ulcer proximal. Duodenal ulcer in the distal bulb.) Procedure & Clinicians Study performed: EGD with injection of epinephrine solution Same procedure as scheduled: Yes Indications: Recurrence bleed Surgeon: Forest Dia Procedure Notes SCOAP/Timeout: Performed Procedure in detail: The patient was brought to the endoscopy suite and underwent general endotracheal anesthesia. This was done to protect his airway because of concern that he could have a stomach full of blood and is at risk of aspiration. A bite block was inserted next to the T-tube and the scope was advanced through it into the esophagus. The esophagus was unremarkable. GE junction was noted at 38 cm. There was evidence of a Schatzki ring but it was not obstructing. The GE junction was widely patent.. The stomach insufflated well. There were no lesions seen in the body, antrum or at the incisura. In the cardia however there was evidence of ulceration. The pyloric channel was patent. The duodenum was remarkable for duodenitis and the presence of an ulcer in the distal bowel. I could not see the base of the ulcer. The scope was passed beyond the 2nd and 3rd parts of the duodenum which were normal. The scope was brought back into the duodenal bulb and epinephrine solution injected around the ulcer.. The scope was brought back into the stomach and retroflexed. The proximal stomach was examined again and I injected epinephrine around the ulcers in the proximal stomach.. The scope was straightened and brought out through the esophagus again. No other lesions were seen. The scope was removed and the patient tolerated the procedure well. Scope withdrawal time: Not applicable Sedation minutes: 0 (Done under general anesthesia to protect his airway) Findings: duodenal ulcer (Distal bulb) and gastric ulcer (Cardia (proximal stomach)) Specimen(s): none sent (Biopsies were sent at the last EGD) Complications: none Impression: Duodenal ulcers are associated with H pylori in a majority of cases. Will empirically treat him for H pylori. Post-procedure Recommendations: Other recommendation (EGD in 12 weeks to confirm healing.) Plan for aftercare: Recommend discharge on treatment for H pylori + PPI twice a day Follow up: weeks (Four weeks in the clinic) Disposition: PACU
--- NOTE | 2019-05-16 18:55 | SUR.PHASEI ---
very drowsy, restless, has a glazed look in his eyes, reponds to voice, taking sips of water. C/O stomach pain, encouraged to burp up air. Dr. Dia attempted to talk with patient earlier but he didn't respond to conversation. Skin warm and moist upon arrival from the endo room, HR coming down into the normal range.
[2019-05-16] MEDS: DEXTROSE 5%-0.45% NS 1,000 ML 125 ML IV (19:10)
--- NOTE | 2019-05-16 19:12 | SUR.PHASEI ---
1900 To room 205, bed down and locked, call light within reach, staff caring for patient. Able to transfer himself into the bed; C/o abdominal pain, told Rn that he had quite a bit of air (according to Endo RN) and was encouraged to belch. more awake, no longer glazed eye look, appropriate response to questions. report given.
--- NOTE | 2019-05-16 19:23 | DI.RAD.S_ITS ---
PROCEDURE: XR ABDOMEN 3V INDICATIONS: abdominal pain TECHNIQUE: One view chest and two views of the abdomen were acquired. COMPARISON: [facility], CT, CT ABDOMEN PELVIS W CON, 05/11/2019, 21:55. FINDINGS: Surgical changes and devices: None. Chest: Lungs are clear. Heart size is normal. No pleural effusions. No pneumoperitoneum. Abdomen: Multiple mildly distended loops of small bowel. No air-fluid levels. No suspicious calcifications. Visualized solid organ contours appear normal. Bones: No suspicious bony lesions. IMPRESSION: Mild gaseous distention of the small bowel without evidence of obstruction. Dictated by: Jennifer Burrell M.D. on 05/16/2019 at 20:48 Approved by: Jennifer Burrell M.D. on 05/16/2019 at 20:49
[2019-05-16] MEDS: MORPHINE 4 MG/ML INJ IV (20:10)
[2019-05-16] MEDS: PANTOPRAZOLE 40 MG VIAL IV (22:26)
[2019-05-16] MEDS: AMOXICILLIN 250 MG CAPSULE 1000 MG PO (22:35)
[2019-05-17 00:45] VITALS: BP 108/71; PULSE 75; RESP 16; TEMP 36.6; O2SAT 99
[2019-05-17 04:42] VITALS: BP 114/70; PULSE 69; RESP 13; TEMP 36.6; O2SAT 99
[2019-05-17 05:18] LABS: Add Manual Diff / Slide Review NO; Basophils Absolute Auto 0 /uL (0-100); Basophils Percent Auto 0.3 % (0-2); Eosinophils Absolute Auto 0 /uL (0-450); Eosinophils Percent Auto 0.3 % (2-4); Hematocrit 25.2 % (41-53); Lymphocytes Absolute Auto 2200 /uL (1100-4500); Lymphocytes Percent Auto 20.1 % (25-40); Mean Corpuscular HGB Conc 35.8 % (30-36); Mean Corpuscular Hemoglobin 28.8 PG (26-34); Mean Corpuscular Volume 80.6 fL (80-100); Monocytes Absolute Auto 600 /uL (0-900); Monocytes Percent Auto 5.4 % (3-14); Neutrophils Absolute Auto 7900 /uL (1500-7000); Neutrophils Percent Auto 73.9 % (50-75); Platelet Count 272 X10^3/uL (150-400); Red Blood Cell Count 3.12 X10^6/uL (4.5-5.9); Red Cell Distribution Width 13.3 % (11.6-14.8); White Blood Cell Count 10.7 X10^3/uL (4.5-11.0)
--- NOTE | 2019-05-17 08:06 | PM.PN.1 ---
Subjective Subjective Date Patient Seen: 05/17/19 Time Patient Seen: 08:06 Interval history: Doing well this morning, diet has been advanced, no nausea or vomiting. Patient has some minor epigastric pain. Has not stooled yet in the hospital, had melena prior to arrival. No hematemesis. Has been ambulating up to the bathroom, had shower this am. Exam Vital Signs (past 8 hours): - 05/17/19 00:45 05/17/19 04:42 Temperature 97.8 F 97.8 F Pulse Rate 75 69 Respiratory Rate 16 13 Blood Pressure 108/71 114/70 Pulse Oximetry 99 99 Oxygen Delivery Method Room Air Oxygen Flow Rate 0 Narrative Exam Narrative: GENERAL: Alert and oriented, appearing stated age and in no acute distress. HEENT: Head normocephalic/atraumatic. LUNGS: Clear to ausculation bilaterally, no wheezes, rhonchi or rales. CV: Normal S1 and S2 with regular rate and rhythm, no audible murmurs, rubs or gallops. ABDOMEN: Soft, non-tender, non-distended, no organomegaly. Positive bowel sounds. EXTREMITIES: No clubbing, cyanosis, or edema. NEURO: Cranial nerves II through XII grossly intact, no focal deficits. PSYCH: Alert and oriented x 3. SKIN: No concerning lesions. Objective Labs Result Diagrams: 05/17/19 05:05 05/16/19 05:07 Labs: Laboratory Results - last 24 hr 05/16/19 05/17/19 08:10 05:05 WBC 10.7 RBC 3.12 L Hgb 10.8 L 9.0 L Hct 31.1 L 25.2 L MCV 80.6 MCH 28.8 MCHC 35.8 RDW 13.3 Plt Count 272 Neut % (Auto) 73.9 Lymph % (Auto) 20.1 L [place] % (Auto) 5.4 Eos % (Auto) 0.3 L Baso % (Auto) 0.3 Neut # (Auto) 7900 H Lymph # (Auto) 2200 [place] # (Auto) 600 Eos # (Auto) 0 Baso # (Auto) 0 Assessment & Plan Assessment & Plan narrative: 1. Upper GI bleed, secondary to fundic and gastric bulb ulcer status post epinephrine injection of base of both ulcers yesterday. Will continue triple therapy including proton pump inhibitor and trend labs. H&H has fallen this morning, fairly steep decline, will watch trend for 1 more day prior to to discharge as this is patient's second admission for same complaint in a short interval. No need for transfusion at this point, watching closely. Plan for repeat EGD in 12 weeks. 2. Reactive airway disease, mild, intermittent. No current issues. Will follow 3. DVT prophylaxis: SCDs. 4. Code: Full Quality VTE Deep Vein Thrombosis/Pulmonary Embolism Present on Admission: No
[2019-05-17 09:00] VITALS: BP 114/58; PULSE 65; RESP 16; TEMP 36.6; O2SAT 98
[2019-05-17] MEDS: PANTOPRAZOLE 40 MG VIAL IV ×2 (09:13→20:48)
[2019-05-17] MEDS: AMOXICILLIN 250 MG CAPSULE 1000 MG PO ×2 (09:15→20:48)
[2019-05-17] MEDS: CLARITHROMYCIN 500 MG TABLET PO ×2 (09:15→20:48)
[2019-05-17 10:42] VITALS: BP 113/51; PULSE 58; RESP 16; TEMP 36.7; O2SAT 99
[2019-05-17] MEDS: DEXTROSE 5%-0.45% NS 1,000 ML 125 ML IV ×2 (11:52→20:49)
--- NOTE | 2019-05-17 12:50 | PC.NURSE ---
Day shift: Pt ambulated in halls with this telegraphic typewriter operator chief. Ambulated from North to South and back again. Tolerated well. Pt back in bed. Call light in reach. Pt steady on feet. No s/s of dizziness.
--- NOTE | 2019-05-17 15:10 | PM.PN.1 ---
Subjective Subjective Date Patient Seen: 05/17/19 Time Patient Seen: 09:10 Interval history: The patient is a gentleman who has ulcers in the stomach and the duodenum. He had injection therapy yesterday and was placed on PPIs and is began treatment for H pylori. Is having some cramping and had some abdominal pain yesterday. Plain x-rays were non revealing S2 any serious causes. It appeared that he had a lot of air in his intestine from the scope that may have been causing his discomfort. There was no free air. Exam Vital Signs (past 8 hours): - 05/17/19 09:00 05/17/19 10:42 Temperature 97.8 F 98.1 F Pulse Rate 65 58 L Respiratory Rate 16 16 Blood Pressure 114/58 L 113/51 L Pulse Oximetry 98 99 Oxygen Delivery Method Room Air Oxygen Flow Rate 0 Narrative Exam Narrative: Alert soft. Abdomen is nontender. Objective Labs Result Diagrams: 05/17/19 05:05 05/16/19 05:07 Labs: Laboratory Results - last 24 hr 05/17/19 05:05 WBC 10.7 RBC 3.12 L Hgb 9.0 L Hct 25.2 L MCV 80.6 MCH 28.8 MCHC 35.8 RDW 13.3 Plt Count 272 Neut % (Auto) 73.9 Lymph % (Auto) 20.1 L [place] % (Auto) 5.4 Eos % (Auto) 0.3 L Baso % (Auto) 0.3 Neut # (Auto) 7900 H Lymph # (Auto) 2200 [place] # (Auto) 600 Eos # (Auto) 0 Baso # (Auto) 0 Assessment & Plan Assessment & Plan narrative: Doing well. Continue treatment of his ulcer and empiric treatment of H pylori. On a clear liquid diet. I would not advance him yet. I would make sure he is truly stop bleeding before advancing his diet. Quality VTE Deep Vein Thrombosis/Pulmonary Embolism Present on Admission: No
[2019-05-17 16:31] VITALS: BP 113/61; PULSE 74; RESP 15; TEMP 36.7; O2SAT 96
--- NOTE | 2019-05-17 18:47 | CM.DANOTE ---
DCP assessment: EMR reviewed: Patient is a 24 yr old male admitted IP for a GI Bleed. No PCP listed. Met with patient and family at the bedside. Explained CM/RN role. Patient was alert and oriented. Patient lives in an apartment with a roommate. Patient is a readmit for a GI bleed. patient was originally addmitted on 05/12/2019 and d/c home on 05/13/2019. Patient would like to get information and a david care application to help with hospital bills not covered by his insurance. Patient stated he is currently unemployed and is worried about affording his hopital stay. CM will give patient a david care application tomorrow morning 05/18/2019. Patient also stated he would like some information from the central aisle cashier about appropriate diet. CM will contact nutrition department tomorrow 05/18/2019 to check on resources. Insurance 1st payer: [employer] 2nd payer: Self Discharge plan: Patient to DC home when medically stable. No identified D/c planning needs at this time. Marisol Portillo RN Discharge Planning/Care Management CM Discharge Assessment Start: 05/17/19 18:43 Freq: Status: Active Protocol: Document 05/17/19 18:43 HS (Rec: 05/17/19 18:47 HS [id number]) Discharge Planning Assessment Assigned Side Stitching Machine Operator Marisol Portillo RN DPOA/Assigned Designee Name Betina Obrien (Grandmother) Contact Information [phone] Advance Directives? No History Provided By Patient Has Patient been admitted in last 30 Yes days? Comment Patient was last admitted on Prior Living Arrangements Apartment/Condo Household Members friend(s) Type of transporation used prior to Drives own vehicle admit Independent with ADL's Yes Caregiver for Another No Barriers to Discharge No Discharge Plan Home Transportation Arrangement Family will drive him home at discharge Whiteboard Updated in Patient Room with Yes name and ext. # of Side Stitching Machine Operator Review Status In Process Next Review Type Continued Stay Review
[2019-05-17 19:50] VITALS: BP 140/71; PULSE 70; RESP 16; TEMP 36.9; O2SAT 100
[2019-05-18] VITALS (7 sets, daily range): BP systolic 94–140; BP diastolic 49–80; PULSE 58–85; RESP 16; TEMP 36.5–37.2; O2SAT 98–100
[2019-05-18] MEDS: DEXTROSE 5%-0.45% NS 1,000 ML 125 ML IV ×3 (04:40→21:27)
[2019-05-18 05:45] LABS: Add Manual Diff / Slide Review NO; Basophils Absolute Auto 0 /uL (0-100); Basophils Percent Auto 0.8 % (0-2); Eosinophils Absolute Auto 300 /uL (0-450); Eosinophils Percent Auto 5.1 % (2-4); Hematocrit 23.4 % (41-53); Hemoglobin 8.3 g/dL (13.5-17.5); Lymphocytes Absolute Auto 2700 /uL (1100-4500); Lymphocytes Percent Auto 44.8 % (25-40); Mean Corpuscular HGB Conc 35.6 % (30-36); Mean Corpuscular Hemoglobin 29.1 PG (26-34); Mean Corpuscular Volume 81.8 fL (80-100); Monocytes Absolute Auto 400 /uL (0-900); Monocytes Percent Auto 5.9 % (3-14); Neutrophils Absolute Auto 2600 /uL (1500-7000); Neutrophils Percent Auto 43.4 % (50-75); Platelet Count 259 X10^3/uL (150-400); Red Blood Cell Count 2.86 X10^6/uL (4.5-5.9); Red Cell Distribution Width 13.3 % (11.6-14.8)
[2019-05-18 05:48] LABS: BUN Creatinine Ratio 8.9 (6-22); Blood Urea Nitrogen 8 mg/dL (9-20); Calcium 8.7 mg/dL (8.4-10.2); Carbon Dioxide 27 mmol/L (22-32); Chloride 106 mmol/L (98-107); Estimated Glomerular Filt Rate > 60.0 mL/min (>60); Glucose 101 mg/dL (70-100); HEMOLYSIS < 15 (0-50); Potassium 3.5 mmol/L (3.4-5.1); Sodium 138 mmol/L (137-145)
--- NOTE | 2019-05-18 08:23 | PM.PN.1 ---
Subjective Subjective Date Patient Seen: 05/18/19 Time Patient Seen: 08:31 Interval history: Feeling better, denies any epigastric pain. No nausea or vomiting. Still has not stooled, positive flatus. Ambulating up to the bathroom. Exam Vital Signs (past 8 hours): - 05/18/19 04:20 05/18/19 04:22 05/18/19 08:00 Temperature 97.7 F 97.7 F Pulse Rate 63 81 Respiratory Rate 16 16 Blood Pressure 99/49 L 94/67 139/80 Pulse Oximetry 98 100 Oxygen Delivery Method Room Air Oxygen Flow Rate 0 Narrative Exam Narrative: GENERAL: Pale, alert and oriented, appearing stated age and in no acute distress. HEENT: Head normocephalic/atraumatic. LUNGS: Clear to ausculation bilaterally, no wheezes, rhonchi or rales. CV: Normal S1 and S2 with regular rate and rhythm, no audible murmurs, rubs or gallops. ABDOMEN: Soft, NT, non-distended, no organomegaly. Positive bowel sounds. EXTREMITIES: No clubbing, cyanosis, or edema. NEURO: Cranial nerves II through XII grossly intact, no focal deficits. PSYCH: Alert and oriented x 3. SKIN: No concerning lesions. Objective Labs Result Diagrams: 05/18/19 08:50 05/18/19 05:25 Labs: Laboratory Results - last 24 hr 05/18/19 05/18/19 05:25 05:25 WBC 6.0 RBC 2.86 L Hgb 8.3 L Hct 23.4 L MCV 81.8 MCH 29.1 MCHC 35.6 RDW 13.3 Plt Count 259 Neut % (Auto) 43.4 L D Lymph % (Auto) 44.8 H D [place] % (Auto) 5.9 Eos % (Auto) 5.1 H Baso % (Auto) 0.8 Neut # (Auto) 2600 Lymph # (Auto) 2700 [place] # (Auto) 400 Eos # (Auto) 300 Baso # (Auto) 0 Sodium 138 Potassium 3.5 Chloride 106 Carbon Dioxide 27 BUN 8 L Creatinine 0.90 Estimated GFR > 60.0 BUN/Creatinine Ratio 8.9 Glucose 101 H Calcium 8.7 Assessment & Plan Assessment & Plan narrative: 1. Upper GI bleed, secondary to fundic and gastric bulb ulcer status post epinephrine injection of base of both ulcers on 05/16/19, still bleeding. Will continue triple therapy including proton pump inhibitor and add octreotide 100 mcg bolus followed by 25 mcg/hr drip as H/H falling. May need transfusion if vitals become unstable, Will type and hold 2 units. Clear liquid diet. Plan for repeat EGD in 12 weeks. 2. Reactive airway disease, mild, intermittent. No current issues. Will follow closely. 3. DVT prophylaxis: SCDs. 4. Code: Full Quality VTE Deep Vein Thrombosis/Pulmonary Embolism Present on Admission: No
[2019-05-18 09:01] LABS: Add Manual Diff / Slide Review NO; Basophils Absolute Auto 0 /uL (0-100); Basophils Percent Auto 0.7 % (0-2); Eosinophils Absolute Auto 300 /uL (0-450); Eosinophils Percent Auto 5.6 % (2-4); Hematocrit 25.8 % (41-53); Lymphocytes Absolute Auto 2400 /uL (1100-4500); Lymphocytes Percent Auto 42.1 % (25-40); Mean Corpuscular HGB Conc 34.9 % (30-36); Mean Corpuscular Hemoglobin 28.5 PG (26-34); Mean Corpuscular Volume 81.7 fL (80-100); Monocytes Absolute Auto 400 /uL (0-900); Monocytes Percent Auto 6.2 % (3-14); Neutrophils Absolute Auto 2600 /uL (1500-7000); Neutrophils Percent Auto 45.4 % (50-75); Platelet Count 275 X10^3/uL (150-400); Red Blood Cell Count 3.16 X10^6/uL (4.5-5.9); Red Cell Distribution Width 13.5 % (11.6-14.8); White Blood Cell Count 5.7 X10^3/uL (4.5-11.0)
[2019-05-18] MEDS: OCTREOTIDE 100 MCG/ML VIAL IV (09:23)
[2019-05-18] MEDS: AMOXICILLIN 250 MG CAPSULE 1000 MG PO ×2 (09:23→21:31)
[2019-05-18] MEDS: CLARITHROMYCIN 500 MG TABLET PO ×2 (09:23→21:32)
[2019-05-18] MEDS: PANTOPRAZOLE 40 MG VIAL IV ×2 (09:27→21:17)
[2019-05-18] MEDS: OCTREOTIDE 500 MCG in SODIUM CHLORIDE 0.9% 100 ML 5.05 ML IV (10:07)
--- NOTE | 2019-05-18 11:33 | CM.DPNOTE ---
Met with patient at bedside, patient stated he is very worried about his bill from being in the hospital. Patient has insurance through [employer] but is feeling worried. CM gave patient a [employer] health application with instructions. CM also explained that each insurance company has out of pocket maximums for his plan. Patient stated he will look into that and seem to get some relief. CM also spoke to Nutrition this morning 05/18/2019 at rounds and they brought diet resources to patient. d/c plan is to go home when medically stable. no identified d/c planning needs noted at this time. Marisol Portillo RN
[2019-05-18] MEDS: metroNIDAZOLE 500 MG TABLET PO (21:16)
--- NOTE | 2019-05-18 23:49 | PC.NURSE ---
shift summary- Ambulated with pt nurse loop x2, reports mild cramping, then resolved. LFA D51/2NS @ 12. 100%RA, LS clear. Denies dizziness or lightheadedness. BT+, tolerating clears diet, denies nausea. Ambulated hallways x2 with student nurse. Call light in reach.
[2019-05-19] VITALS (7 sets, daily range): BP systolic 117–134; BP diastolic 62–75; PULSE 50–69; RESP 16–17; TEMP 36.1–37.1; O2SAT 95–100
--- NOTE | 2019-05-19 04:20 | PC.NURSE ---
Pt denies pain or nausea, but reports cramping. Bowel tones positive. Pt VSS and lung sounds are clear bilaterally. Pt stand by assist to bathroom and in room. Pt declined to wear SCD's and was educated about their use and purpose. Pt is calm and cooperative. Call light is in within reach.
[2019-05-19 06:25] LABS: Add Manual Diff / Slide Review NO; Basophils Absolute Auto 0 /uL (0-100); Basophils Percent Auto 0.8 % (0-2); Eosinophils Absolute Auto 400 /uL (0-450); Eosinophils Percent Auto 6.5 % (2-4); Hematocrit 25.3 % (41-53); Hemoglobin 8.9 g/dL (13.5-17.5); Lymphocytes Absolute Auto 2100 /uL (1100-4500); Lymphocytes Percent Auto 38.3 % (25-40); Mean Corpuscular HGB Conc 35.2 % (30-36); Mean Corpuscular Hemoglobin 28.8 PG (26-34); Mean Corpuscular Volume 81.9 fL (80-100); Monocytes Absolute Auto 300 /uL (0-900); Monocytes Percent Auto 5.6 % (3-14); Neutrophils Absolute Auto 2700 /uL (1500-7000); Neutrophils Percent Auto 48.8 % (50-75); Platelet Count 289 X10^3/uL (150-400); Red Blood Cell Count 3.09 X10^6/uL (4.5-5.9); Red Cell Distribution Width 13.5 % (11.6-14.8); White Blood Cell Count 5.4 X10^3/uL (4.5-11.0)
[2019-05-19 06:34] LABS: BUN Creatinine Ratio 6.7 (6-22); Blood Urea Nitrogen 6 mg/dL (9-20); Carbon Dioxide 29 mmol/L (22-32); Chloride 104 mmol/L (98-107); Estimated Glomerular Filt Rate > 60.0 mL/min (>60); Glucose 129 mg/dL (70-100); HEMOLYSIS < 15 (0-50); Potassium 3.7 mmol/L (3.4-5.1); Sodium 140 mmol/L (137-145)
--- NOTE | 2019-05-19 09:16 | P.PN_ITS ---
Subjective Subjective Date Patient Seen: 05/19/19 Time Patient Seen: 09:17 Interval history: Patient is feeling well again this morning. Has been up to ambulate in the hallway 4 times. Still on a clear liquid diet but denies any abdominal pain for the past 2 days. Feels ready to start advancing his diet. Is passing plenty of gas but has not had a bowel movement yet. No nausea or vomiting. Exam Vital Signs (past 8 hours): - 05/19/19 04:00 05/19/19 07:30 Temperature 97.5 F L 97.2 F L Pulse Rate 60 61 Respiratory Rate 16 16 Blood Pressure 120/68 134/73 Pulse Oximetry 98 99 Oxygen Delivery Method Room Air Oxygen Flow Rate 0 Narrative Exam Narrative: GENERAL: Alert and oriented, appearing stated age and in no acute distress. HEENT: Head normocephalic/atraumatic. Pupils equal, round, and reactive to light and accomodation. Extraocular muscles intact. Tympanic membranes clear. Nasal mucosa moist, septum midline. Oral mucosa moist, no lesions. Neck soft a nd supple, no lymphadenopathy. LUNGS: Clear to ausculation bilaterally, no wheezes, rhonchi or rales. CV: Normal S1 and S2 with regular rate and rhythm, no audible murmurs, rubs or gallops. ABDOMEN: Soft, non-tender, non-distended, no organomegaly. Positive bowel sounds. EXTREMITIES: No clubbing, cyanosis, or edema. NEURO: Cranial nerves II through XII grossly intact, no focal deficits. PSYCH: Alert and oriented x 3. SKIN: No concerning lesions. Objective Labs Result Diagrams: 05/19/19 05:50 05/19/19 05:50 Labs: Laboratory Results - last 24 hr 05/16/19 05/19/19 05/19/19 05:07 05:50 05:50 WBC 5.4 RBC 3.09 L Hgb 8.9 L Hct 25.3 L MCV 81.9 MCH 28.8 MCHC 35.2 RDW 13.5 Plt Count 289 Neut % (Auto) 48.8 L Lymph % (Auto) 38.3 [place] % (Auto) 5.6 Eos % (Auto) 6.5 H Baso % (Auto) 0.8 Neut # (Auto) 2700 Lymph # (Auto) 2100 [place] # (Auto) 300 Eos # (Auto) 400 Baso # (Auto) 0 Sodium 140 Potassium 3.7 Chloride 104 Carbon Dioxide 29 BUN 6 L Creatinine 0.90 Estimated GFR > 60.0 BUN/Creatinine Ratio 6.7 Glucose 129 H Calcium 9.0 Crossmatch See Detail Assessment & Plan Assessment & Plan narrative: 1. Upper GI bleed, secondary to fundic and gastric bulb ulcer status post epinephrine injection of base of both ulcers on 05/16/19, H/H stable in the last 24 hours. Will continue triple therapy including proton pump inhibitor and octreotide 100 mcg bolus followed by 25 mcg/hr drip. Patient has been pain-free for the past 2 days, will cautiously advance diet today and plan for discharge tomorrow if tolerated and H&H stable in the morning. Plan for repeat EGD in 12 weeks. 2. Reactive airway disease, mild, intermittent. No current issues. Will follow closely. 3. DVT prophylaxis: SCDs. 4. Code: Full Quality VTE Deep Vein Thrombosis/Pulmonary Embolism Present on Admission: No
[2019-05-19] MEDS: ACETAMINOPHEN 325 MG TABLET 650 MG PO (09:47)
[2019-05-19] MEDS: metroNIDAZOLE 500 MG TABLET PO ×3 (09:48→21:50)
[2019-05-19] MEDS: AMOXICILLIN 250 MG CAPSULE 1000 MG PO ×2 (09:48→21:51)
[2019-05-19] MEDS: CLARITHROMYCIN 500 MG TABLET PO ×2 (09:48→21:51)
[2019-05-19] MEDS: PANTOPRAZOLE 40 MG VIAL IV ×2 (09:49→21:43)
--- NOTE | 2019-05-19 11:10 | PC.NURSE ---
Addendum entered by Oralia Feng R.N. 05/19/19 13:45: GI/MS - fabián bites full liq, up with student nurse standby and ambul [place] hallway several times, states some occassional dizzines, gait is steady. Original Note: AM NOTE - pt awakened for breakfast, mildy anxious re anemia at times, denies abd pain or nausea, states some continued dizziness at times, and discomfort neck, given tylenol 650mg, clear liq was adv to full liq and started w/yogurt, pt able stand and ambul w/fish processing supervisor into shower.
[2019-05-19] MEDS: OCTREOTIDE 500 MCG in SODIUM CHLORIDE 0.9% 100 ML 5.05 ML IV (11:43)
[2019-05-19] MEDS: DEXTROSE 5%-0.45% NS 1,000 ML 125 ML IV ×2 (14:27→22:38)
--- NOTE | 2019-05-20 01:24 | PC.NURSE ---
Patient is alert and oriented. Breath sounds CTA with RA sat of 100%. HRR but bradycardic at 50 bpm. Denies nausea. Tender to palpation across epigastric area. BT present but has not had a BM since 05/16; is passing flatus. Turns self in bed and is up to bathroom with SBA to void; using urinal and denies dysuria, frequency or urgency. Denies pain. Refusing SCD's despite information regarding DVT prevention; reminded to ankle wave. Fall risk score is low.
[2019-05-20 05:40] VITALS: BP 128/70; PULSE 58; RESP 16; TEMP 36.6; O2SAT 98
[2019-05-20] MEDS: DEXTROSE 5%-0.45% NS 1,000 ML 125 ML IV (06:52)
[2019-05-20 07:50] LABS: Add Manual Diff / Slide Review NO; Basophils Absolute Auto 0 /uL (0-100); Basophils Percent Auto 0.7 % (0-2); Eosinophils Absolute Auto 300 /uL (0-450); Eosinophils Percent Auto 5.9 % (2-4); Hematocrit 26.8 % (41-53); Hemoglobin 9.5 g/dL (13.5-17.5); Lymphocytes Absolute Auto 1900 /uL (1100-4500); Lymphocytes Percent Auto 35.2 % (25-40); Mean Corpuscular HGB Conc 35.4 % (30-36); Mean Corpuscular Hemoglobin 28.6 PG (26-34); Mean Corpuscular Volume 80.9 fL (80-100); Monocytes Absolute Auto 400 /uL (0-900); Monocytes Percent Auto 7.3 % (3-14); Neutrophils Absolute Auto 2800 /uL (1500-7000); Neutrophils Percent Auto 50.9 % (50-75); Platelet Count 313 X10^3/uL (150-400); Red Blood Cell Count 3.31 X10^6/uL (4.5-5.9); Red Cell Distribution Width 13.6 % (11.6-14.8); White Blood Cell Count 5.4 X10^3/uL (4.5-11.0)
[2019-05-20 08:01] LABS: BUN Creatinine Ratio 8.9 (6-22); Blood Urea Nitrogen 8 mg/dL (9-20); Calcium 9.1 mg/dL (8.4-10.2); Carbon Dioxide 27 mmol/L (22-32); Chloride 105 mmol/L (98-107); Estimated Glomerular Filt Rate > 60.0 mL/min (>60); Glucose 111 mg/dL (70-100); HEMOLYSIS < 15 (0-50); Potassium 3.9 mmol/L (3.4-5.1); Sodium 140 mmol/L (137-145)
--- NOTE | 2019-05-20 08:31 | PM.DS.1 ---
History of Present Illness History of Present Illness Date Patient Seen: 05/20/19 Time Patient Seen: 08:32 Chief complaint: nausea fatigue diarrhea bleeding from rectum Discharge Providers Provider Date of admission: 05/16/19 10:15 Discharge Date: 05/20/19 Primary care physician: Vilma Garcia MD Consults: 05/16/19 09:40 Consult to General Surgery Stat Comment: Consulting Provider: Forest Dia Reason for consultation: gi bleed ulcer Has provider been notified: Yes 05/16/19 19:12 Consult to Discharge Planning Routine Comment: Discharge provider: Vilma Garcia MD Summary Hospital Course Discharge Diagnosis: 1. Upper GI bleed 2. Anemia, normocytic/nomochromic secondary to acute GI blood loss 3. Reactive airway disease, mild, intermittent. Hospital Course: Remarkable for an EGD that revealed a duodenal and fundic gastric ulcer that was injected with lidocaine on day of admission. Pathology still pending, concern for H pylori disease. Patient is being treated with triple therapy. Hemoglobin/hematocrit levels were slow to trend up and there was a concern for continued bleeding. Octreotide was started intravenously and on day discharge, hemoglobin/hematocrit is trending up at 9.5/26.8 respectively. Admission hemoglobin/hematocrit 10.8/31.1, jared of 8.9/25.3. Patient has been on a clear liquid diet that was slowly advanced yesterday to soft and he tolerated that well. Bowel movement this morning was guaic positive. He is ambulating without dizziness. Denies any epigastric pain. On day of discharge he is afebrile with stable vital signs throughout. He will need outpatient follow-up in 1-2 weeks with repeat CBC. Will continue on triple therapy for another 10 days. Status at Discharge Cognitive/behavioral status at discharge: oriented Functional status at discharge: independent ambulation Overall status at discharge: patient is progressing back to baseline Time Spent with Patient Time spent: Greater than 30 minutes Exam Vital Signs (past 8 hours): - 05/20/19 05:40 Temperature 97.8 F Pulse Rate 58 L Respiratory Rate 16 Blood Pressure 128/70 Pulse Oximetry 98 Oxygen Delivery Method Room Air Oxygen Flow Rate 0 Narrative Exam Narrative: GENERAL: Alert and oriented, appearing stated age and in no acute distress. HEENT: Head normocephalic/atraumatic. Pupils equal, round, and reactive to light and accomodation. Extraocular muscles intact. Tympanic membranes clear. Nasal mucosa moist, septum midline. Oral mucosa moist, no lesions. Neck soft and supple, no lymphadenopathy. LUNGS: Clear to ausculation bilaterally, no wheezes, rhonchi or rales. CV: Normal S1 and S2 with regular rate and rhythm, no audible murmurs, rubs or gallops. ABDOMEN: Soft, non-tender, non-distended, no organomegaly. Positive bowel sounds. EXTREMITIES: No clubbing, cyanosis, or edema. NEURO: Cranial nerves II through XII grossly intact, no focal deficits. PSYCH: Alert and oriented x 3. SKIN: No concerning lesions. Objective Labs Result Diagrams: 05/20/19 07:35 05/20/19 07:35 Labs: Laboratory Results - last 24 hr 05/20/19 05/20/19 07:35 07:35 WBC 5.4 RBC 3.31 L Hgb 9.5 L Hct 26.8 L MCV 80.9 MCH 28.6 MCHC 35.4 RDW 13.6 Plt Count 313 Neut % (Auto) 50.9 Lymph % (Auto) 35.2 [place] % (Auto) 7.3 Eos % (Auto) 5.9 H Baso % (Auto) 0.7 Neut # (Auto) 2800 Lymph # (Auto) 1900 [place] # (Auto) 400 Eos # (Auto) 300 Baso # (Auto) 0 Sodium 140 Potassium 3.9 Chloride 105 Carbon Dioxide 27 BUN 8 L Creatinine 0.90 Estimated GFR > 60.0 BUN/Creatinine Ratio 8.9 Glucose 111 H Calcium 9.1 Discharge Plan Discharge Plan Patient Disposition: Home Discharge Med Rec/Prescriptions Prescriptions: New clarithromycin 500 mg Tablet 500 mg PO BID 10 Days Qty: 20 RF: 0 amoxicillin 250 mg Capsule 1,000 mg PO BID 10 Days Qty: 80 RF: 0 Continued albuterol sulfate 90 mcg/actuation Hfa Aerosol Inhaler 2 puff INHALATION Q4-6H PRN (Reason: Shortness Of Breath Or Wheezing) RF: 0 pantoprazole 40 mg tablet,delayed release (DR/EC) 40 mg PO BID Qty: 60 RF: 0 ondansetron 4 mg tablet,disintegrating 4 mg PO Q8H PRN (Reason: nausea and vomiting) Qty: 10 RF: 0 Follow up/Referrals: Vilma Garcia MD [Physician] - (appt:05/26 @ 11:[address] garcia at [facility]-please arrive 15 minutes prior to your scheduled appointment) Provider Discharge Instructions Diet comment: advance as tolerated, return to clear liquids with any return of abd pain. Activity: as tolerated Skin/Wound/Dressing Care Report to your healthcare provider any signs of infection, such as:: increased pain Visit Report/Discharge Packet Instructions: Hemoglobin, Ulcers (Alternative Therapy), Peptic Ulcer, DI for Gastric Ulcer, DI for Helicobacter Pylori Infection, DI for Gastrointestinal Bleeding Stand Alone Forms: EGD Result: [facility] Discharges patient from system. Discharge Date/Time: 05/20/19 10:40 Quality VTE Deep Vein Thrombosis/Pulmonary Embolism Present on Admission: No
[2019-05-20] MEDS: metroNIDAZOLE 500 MG TABLET PO (08:47)
[2019-05-20] MEDS: CLARITHROMYCIN 500 MG TABLET PO (08:47)
[2019-05-20] MEDS: PANTOPRAZOLE 40 MG VIAL IV (08:47)
[2019-05-20] MEDS: AMOXICILLIN 250 MG CAPSULE 1000 MG PO (08:48)
[2019-05-20 09:00] VITALS: BP 135/75; PULSE 55; RESP 16; TEMP 36.8; O2SAT 99
--- NOTE | 2019-05-20 10:04 | PC.NURSE ---
Addendum entered by Oralia Feng R.N. 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 Original Note: AM NOTE - pt is alert, denies nausea or abd pain, small loose brown stools x2, guaiac positive, no angella blood noted this am, Dr. Garcia in this am and will dc home, script for abx sent elect to [facility], however, the clarithromycin did not transmit per Dr. Garcia and the abx was called in.
== END 2019-05-20 10:40 | disposition home or self-care (01) | DRG 378 ==
LOC: ED 08:02 → AC 10:28
PROVIDERS: Emergency Medicine; Specialist; Student in an Organized Health Care Education/Training Program; Admitting Provider Family Medicine; Emergency Provider Emergency Medicine; Visit Provider Family Medicine
PROC: 0DJ08ZZ Inspection of Upper Intestinal Tract, Via Natural or Artificial Opening Endoscopic (ICD-10-PCS; CPT 43235; principal; 2019-05-16 12:30)
DX: K26.0 Acute duodenal ulcer with hemorrhage (principal); D62 Acute posthemorrhagic anemia; K25.0 Acute gastric ulcer with hemorrhage; J45.20 Mild intermittent asthma, uncomplicated; K29.81 Duodenitis with bleeding
CPT/HCPCS: 43255; 36415; 74021; 80048; 80053; 82272; 83690; 85014; 85018; 85025; 86850; 86900; 86901; 94760; 96374; 96375; 96376; 99221; 99231; 99283; 99284; C9113; J0171; J0330; J1100; J2250; J2270; J2354; J2405; J2704; J3010

== ENCOUNTER 2019-08-02 12:48 | Day surgery (SDC) | payer OTHER, SELFPAY ==
[2019-05-16 11:29] VITALS: BMI 33.5
[2019-08-02] VITALS (10 sets, daily range): BP systolic 106–143; BP diastolic 63–87; PULSE 54–97; RESP 11–20; TEMP 36.1–36.9; O2SAT 95–99; BMI 31.4
--- NOTE | 2019-08-02 | PATH_ITS ---
[facility] Accession Number: [id number] . 01 Material submitted: . PART A: duodenum - THIRD PORTION OF DUODENUM BIOPSY PART B: body - GLOBULAR BULB BIOPSY . 02 Diagnosis: A. Duodenum, Third Portion, Biopsy: Small bowel mucosa with no diagnostic abnormality. Negative for active inflammation, features of sprue, dysplasia, or malignancy. . B. Designated Globular Bulb, Biopsy: Duodenal mucosa with focal erosion; please see comment. Negative for granulomata, feature of sprue, dysplasia or malignancy. V 08/03/2019 1328 Local . 02 Comment: B. The finding of erosive duodenitis raises a differential diagnosis including infection, drug/toxin-induced injury, and peptic duodenitis. . 02 Electronically signed: . Emiliano West MD, PhD, Pathologist NPI- [id number] . 01 Gross description: . Part A: THIRD PORTION OF DUODENUM BIOPSY: Received in formalin are 2 fragment(s) of kaur, soft tissue measuring 0.1 x 0.1 x 0.1 cm to 0.2 x 0.2 x 0.2 cm submitted entirely in 1 cassette(s) Part B: GLOBULAR BULB BIOPSY: Received in formalin is 1 fragment(s) of kaur, soft tissue measuring 0.2 x 0.1 x 0.1 cm which is entirely submitted and submitted entirely in 1 cassette(s) /[facility] [place] 08/02/2019 2208 Local . 02 Pathologist provided ICD-10: K92.2, K29.80 . 02 CPT . 014319, [id number] Performed at: [address] [facility], [place], [place] [id number] MD Shmuel Hardin MD Phone: [phone] Performed at: 02 [facility] [place] [address] [place] [id number] MD Yolette Kline MD Phone: [phone]
--- NOTE | 2019-08-02 08:04 | PM.PREOP ---
Pre-operative Note Interval Note History & Physical reviewed/Exam performed by Physician: Yes Changes to H&P: No ASA Class (for procedural sedation): II
--- NOTE | 2019-08-02 08:04 | PM.OP.ENDO ---
Operative Date/Time/Diagnoses Date of procedure: 08/02/19 Time of procedure: 14:06 Pre-op diagnosis: 1. Upper GI bleed Post-op diagnosis: other (1. Duodenitis) Procedure & Clinicians Study performed: EGD Same procedure as scheduled: Yes Indications: 1. Upper GI bleed Surgeon: Vilma Garcia Procedure Notes SCOAP/Timeout: 2:05 p.m. Procedure in detail: ENDOSCOPIST: Vilma Garcia MD Sedation RN: Shama Gallego RN Sedation start time: 14:06 Sedation end time: 14:18 PROCEDURE: EGD with biopsy INDICATIONS: 1. Upper GI bleed MEDICATION: Incremental doses of Versed and fentanyl until an appropriate level of sedation was achieved. ASA Ratin DURATION OF PROCEDURE: 9 minutes. COMPLICATIONS: None. LIMITATIONS: None EXTENT OF PROCEDURE: Third portion of the Duodenum. PROCEDURE: The high-definition gastroduodenoscope was introduced into the posterior oropharynx under direct vision after Hurricaine spray, noted IV sedation, and proper informed consent. The esophagus was identified and intubated under direct visualization. The scope was quickly passed through the esophagus and into the fundus of the stomach. A small Schatzki's ring was noted distally. A clear fundal pool was aspirated. The scope was then advanced to the antrum and the pylorus was identified. The scope was passed through the pylorus into the second and third portions of the duodenum. No abnormalities were noted in the 2nd and 3rd portions of the duodenum. The duodenal bulb and pyloric channel were inflamed. Random biopsies taken throughout the duodenum. The antrum was unremarkable. J maneuver was produced. No abnormalities were noted of the proximal body, fundus or cardia. No hiatal hernia was noted. Scope was broken out of the J maneuver and the remainder of the stomach was carefully inspected upon withdrawal and was normal. The stomach was carefully deflated of all air on withdrawal. The distal esophagus was carefully inspected and no abnormalities were seen. The remainder of the esophagus was normal upon withdrawal. The larynx and vocal cords appeared to be unremarkable. IMPRESSION: 1. Duodenitis, duodenal bulb PLAN: 1. Follow-up in clinic status post pathology results. The possibility of missed lesion including a malignancy was discussed prior with the patient. Potential alarm symptoms have been discussed and should be reported by the patient immediately. Scope withdrawal time: 9 minutes Sedation minutes: 10 Specimen(s): other Complications: none Impression: As above Post-procedure Recommendations: Will call with biopsy results Follow up: weeks (2) Disposition: PACU
[2019-08-02] MEDS: SODIUM CHLORIDE 0.9% 1,000 ML 200 ML IV (13:13)
[2019-08-02] MEDS: MIDAZOLAM 5 MG/5 ML VIAL IV (14:03)
[2019-08-02] MEDS: fentaNYL 250 MCG/5 ML INJ IV (14:04)
[2019-08-02] MEDS: LIDOCAINE 4% SOLN 50 ML 20 ML TOP (14:05)
--- NOTE | 2019-08-02 14:53 | SUR.PHASEI ---
Per Dr Garcia, prescription will be provided to patient for Omeprrazole prior to discharge from hospital.
--- NOTE | 2019-08-02 16:40 | SUR.PHASEII ---
Pt delayed from discharge in phase II for 60 minutes waiting for prescription for omeprazole from MD Garcia. Pt discharged to home; Dr Garcia to order prescription electronically to be sent to [facility] for pt.
== END 2019-08-02 16:30 | disposition home or self-care (01) ==
PROVIDERS: Visit Provider Student in an Organized Health Care Education/Training Program
PROC: 0DJ08ZZ Inspection of Upper Intestinal Tract, Via Natural or Artificial Opening Endoscopic (ICD-10-PCS; CPT 43235; principal; 2019-08-02 14:00)
DX: K29.80 Duodenitis without bleeding (principal); K22.2 Esophageal obstruction
CPT/HCPCS: 43239; J2250; J3010

== ENCOUNTER 2020-02-04 20:02 | Emergency (ER) | payer OTHER, SELFPAY ==
[2019-05-16 11:29] VITALS: BMI 33.5
[2020-02-04 20:08] VITALS: BP 142/92; PULSE 72; RESP 18; TEMP 36.6; O2SAT 98
--- NOTE | 2020-02-04 20:39 | ED_ITS ---
HPI - Abdominal Pain General Chief Complaint: Abdominal Pain Stated Complaint: upper stomach pain and bloating, blood in stool Time Seen by Provider: 02/04/20 20:13 Source: patient Mode of arrival: Ambulatory Limitations: no limitations History of Present Illness HPI narrative: 24-year-old male nonsmoker with a history of bleeding peptic ulcer presents with a chief complaint of an episode or 2 of painless rectal b leeding. He states that a very small amount an calls it ?spotting?. He does admit to a small amount of epigastric discomfort and feels a bit bloated but denies any significant abdominal pain or vomiting. He denies any dark and tarry stools. He is not dizzy nor weak or lightheaded. He states he has been taking his PPI. He denies any change in medications or diet. MD complaint: abdominal pain Onset (ago): day(s) Pain Consistency: intermittent Location: epigastric Severity: mild Quality: cramping Radiation: none Relieving factors: nothing Exacerbating factors: nothing Associated symptoms: other (spots of red blood on toilet paper) Related Data Home Medications Medication Instructions Recorded Confirmed albuterol sulfate 2 puff INHALATION Q4-6H PRN 05/12/19 08/02/19 acetaminophen [Tylenol] 1,000 mg PO Q4-6H PRN 08/02/19 08/02/19 Allergies Allergy/AdvReac Type Severity Reaction Status Date / Time aspirin [ASPIRIN] Allergy Mild SHAKES, CHERY Verified 08/02/19 13:01 oxycodone [OXYCODONE] Allergy Unknown HIVES=PERCO Verified 08/02/19 13:01 CET Review of Systems Constitutional Constitutional: Denies chills, Denies fatigue, Denies fever(s), Denies frequent falls, Denies lethargy and Denies weakness Eyes Eyes: Denies change in vision, Denies eye discharge, Denies irritation and Denies loss of vision ENT Ears, Nose, Mouth, and Throat: Denies change in voice, Denies dizziness, Denies neck pain, Denies sore throat and Denies throat swelling Cardiovascular Cardiovascular: Denies chest pain, Denies irregular heart rhythm, Denies lightheadedness, Denies palpitations, Denies dyspnea, Denies dyspnea on exertion and Denies orthopnea Respiratory Respiratory: Denies cough, Denies dyspnea, Denies dyspnea on exertion and Denies wheezing Gastrointestinal Gastrointestinal: Reports abdominal pain, Reports bloating, Reports hematochezia, Denies change in bowel habits, Denies diarrhea, Denies nausea and Denies vomiting Musculoskeletal Musculoskeletal: Denies neck pain and Denies numbness Integumentary/Breasts Skin/Breast: Denies pruritus, Denies erythema, Denies rash and Denies wounds Neurologic Neurologic: Denies behavioral changes, Denies confusion, Denies dizziness, Denies frequent falls, Denies loss of vision, Denies numbness and Denies weakness Psychiatric Psychiatric: Denies anxiety, Denies behavioral changes, Denies confusion, Denies depression, Denies homicidal ideation and Denies suicidal ideation Endocrine Endocrine: Denies fatigue, Denies flushing and Denies palpitations Hematologic/Lymphatic Hematologic/Lymphatic: Denies easy bruising Allergic/Immunologic Allergic/Immunologic: Denies urticaria, Denies throat swelling and Denies wheezing Patient History Medical History (Updated 02/04/20 @ 22:56 by Marques Coats DO) Arthralgia of left temporomandibular joint (Acute) Asthma (02/28/14) Heart murmur on physical examination (Inactive) Surgical History History of eye surgery (Acute) No pertinent past surgical history (Acute) Social History household members: friend(s) Smoking Status: Never smoker Smoking Status: Never smoker alcohol intake frequency: holidays/special occasions only Substance Use Type: does not use Exam Narrative Exam Narrative: GENERAL: [24] year old patient appears stated age. Well- nourished, well-developed patient, in mild distress. HEAD: Atraumatic. Normocephalic. EYES: Pupils equal round and reactive. Extraocular motions intact. No scleral icterus. No injection or drainage. ENT: Nose without bleeding, purulent drainage. Throat without erythema, tonsillar hypertrophy or exudate. Airway patent. NECK: Trachea midline. Non tender CARDIOVASCULAR: Regular rate and rhythm without murmurs, gallops, or rubs. RESPIRATORY: Clear to auscultation. Breath sounds equal bilaterally. No wheezes, rales, or rhonchi. GASTROINTESTINAL: Abdomen soft, non-tender, nondistended. RECTAL: refuses EXTREMITIES: No edema or joint tenderness. BACK: Nontender without deformity or crepitance. No flank tenderness. NEURO: AOx3. SKIN: No rash or erythema of visible areas Initial Vital Signs Initial Vital Signs: Vital Signs Temperature 97.9 F 02/04/20 20:08 Pulse Rate 72 02/04/20 20:08 Respiratory Rate 18 02/04/20 20:08 Blood Pressure 142/92 H 02/04/20 20:08 Pulse Oximetry 98 02/04/20 20:08 Course Course Course Narrative: Patient with small amount of painless, infrequent bright red blood on the toilet paper, and occasionally with stool with some epigastric discomfort and bloating. Vital signs are very reassuring, exam and history would not suggest a recurrence of upper gastrointestinal bleed. Labs are unremarkable. Patient given return precautions and has had his questions answered to his apparent satisfaction Orders Ordered: ED Orders 02/04/20 20:29 Complete Blood Count AUTO DIFF Stat Comprehensive Metabolic Panel Stat Lipase Stat Partial Thromboplastin Time Stat Prothrombin Time INR Stat EKG-12 Lead Stat Vital Signs Vital signs: Vital Signs - 8 hr 02/04/20 20:08 Temperature 97.9 F Pulse Rate 72 Respiratory Rate 18 Blood Pressure 142/92 H Pulse Oximetry 98 MDM - Abdominal Pain Lab Data Result diagrams: 02/04/20 20:39 02/04/20 20:39 Labs: Lab Results 02/04/20 02/04/20 02/04/20 Range/Units 20:39 20:39 20:39 WBC 8.4 (4.5-11.0) X10^3/uL RBC 5.56 (4.5-5.9) X10^6/uL Hgb 13.6 (13.5-17.5) g/dL Hct 40.2 L (41-53) % MCV 72.3 L (80-100) fL MCH 24.5 L (26-34) PG MCHC 33.8 (30-36) % RDW 16.4 H (11.6-14.8) % Plt Count 277 (150-400) X10^3/uL Neut % (Auto) 54.3 (50-75) % Lymph % (Auto) 31.2 (25-40) % [place] % (Auto) 9.2 (3-14) % Eos % (Auto) 4.3 H (2-4) % Baso % (Auto) 1.0 (0-2) % Neut # (Auto) 4600 (8287-7138) /uL Lymph # (Auto) 2600 (2129-4547) /uL [place] # (Auto) 800 (0-900) /uL Eos # (Auto) 400 (0-450) /uL Baso # (Auto) 100 (0-100) /uL PT 12.0 (10.1-12.7) SECONDS INR 1.0 (0.9-1.3) APTT 34 D (26.4-36.2) SECONDS Sodium 139 (137-145) mmol/L Potassium 3.8 (3.4-5.1) mmol/L Chloride 105 (98-107) mmol/L Carbon Dioxide 23 (22-32) mmol/L BUN 21 H (9-20) mg/dL Creatinine 1.05 (0.66-1.25) mg/dL Estimated GFR > 60.0 (>60) mL/min BUN/Creatinine Ratio 20.0 (6-22) Glucose 90 (70-100) mg/dL Calcium 9.6 (8.4-10.2) mg/dL Total Bilirubin 0.3 (0.2-1.3) mg/dL AST 31 (17-59) IU/L ALT 39 (<50) IU/L Alkaline Phosphatase 68 (38-126) U/L Total Protein 7.8 (6.3-8.2) g/dL Albumin 4.8 (3.5-5.0) g/dL Globulin 3.0 (1.7-4.1) g/dL Albumin/Globulin Ratio 1.6 (1.0-2.8) Lipase 103 (23-300) U/L Point of care testing: Urine Dip Bedside Urine Glucose Negative Bedside Urine Bilirubin - Negative Bedside Urine Ketone +/- 5 Urine Specific [place] 1.020 Bedside Urine Occult Blood - Negative Bedside Urine pH 6.5 Bedside Urine Protein +/- 15 Bedside Urine Urobilinogen - Negative Bedside Urine Nitrite - Negative Bedside Urine Leukocytes - Negative Esterase Discharge Plan Departure Patient Disposition: Home Clinical Impression: Bright red rectal bleeding Discharge Date/Time: 02/04/20 23:10 Instructions: DI for Rectal Bleeding Activity Restrictions/Additional Instructions: *You have been diagnosed with [ painless rectal bleeding ] *What to do: *Take medications as directed *Follow up with your primary care provider in 2-3 days, call for an appointment. Let them know you were seen in the Emergency Department and that we ask that you be seen in follow up *Return to ER if you should have any new, worsening or concerning symptoms, such as [increased pain, increased bleeding, fever >101F or other bothersome symptoms ] Prescriptions: No Action albuterol sulfate 90 mcg/actuation Hfa Aerosol Inhaler 2 puff INHALATION Q4-6H PRN (Reason: Shortness Of Breath Or Wheezing) RF: 0 acetaminophen [Tylenol] 325 mg Capsule 1,000 mg PO Q4-6H PRN (Reason: Pain (Scale Score 1-3)) RF: 0 Referrals: Forest Dia MD [Physician] -
[2020-02-04 20:46] LABS: Add Manual Diff / Slide Review NO; Basophils Absolute Auto 100 /uL (0-100); Eosinophils Absolute Auto 400 /uL (0-450); Eosinophils Percent Auto 4.3 % (2-4); Hematocrit 40.2 % (41-53); Hemoglobin 13.6 g/dL (13.5-17.5); Lymphocytes Absolute Auto 2600 /uL (1100-4500); Lymphocytes Percent Auto 31.2 % (25-40); Mean Corpuscular HGB Conc 33.8 % (30-36); Mean Corpuscular Hemoglobin 24.5 PG (26-34); Mean Corpuscular Volume 72.3 fL (80-100); Monocytes Absolute Auto 800 /uL (0-900); Monocytes Percent Auto 9.2 % (3-14); Neutrophils Absolute Auto 4600 /uL (1500-7000); Neutrophils Percent Auto 54.3 % (50-75); Platelet Count 277 X10^3/uL (150-400); Red Blood Cell Count 5.56 X10^6/uL (4.5-5.9); Red Cell Distribution Width 16.4 % (11.6-14.8); White Blood Cell Count 8.4 X10^3/uL (4.5-11.0)
[2020-02-04 20:55] LABS: PTT Partial Thromboplastin Tim 34 SECONDS (26.4-36.2)
[2020-02-04 20:57] LABS: Alanine Aminotransferase 39 IU/L (<50); Albumin 4.8 g/dL (3.5-5.0); Albumin Globulin Ratio 1.6 (1.0-2.8); Alkaline Phosphatase 68 U/L (38-126); Aspartate Aminotransferase 31 IU/L (17-59); Bilirubin Total 0.3 mg/dL (0.2-1.3); Blood Urea Nitrogen 21 mg/dL (9-20); Calcium 9.6 mg/dL (8.4-10.2); Carbon Dioxide 23 mmol/L (22-32); Chloride 105 mmol/L (98-107); Estimated Glomerular Filt Rate > 60.0 mL/min (>60); Glucose 90 mg/dL (70-100); HEMOLYSIS < 15 (0-50); Lipase 103 U/L (23-300); Potassium 3.8 mmol/L (3.4-5.1); Sodium 139 mmol/L (137-145); Total Protein 7.8 g/dL (6.3-8.2)
[2020-02-04 21:33] VITALS: BP 146/86; PULSE 99; O2SAT 67
[2020-02-04 23:05] VITALS: BP 153/89; PULSE 68; RESP 18; O2SAT 97
== END 2020-02-04 23:10 | disposition home or self-care (01) ==
PROVIDERS: Emergency Provider Emergency Medicine
DX: K62.5 Hemorrhage of anus and rectum (principal); R10.13 Epigastric pain
CPT/HCPCS: 36415; 80053; 81003; 83690; 85025; 85610; 85730; 99283; 99284

== ENCOUNTER → 2021-03-15 12:37 | Outpatient (CLI) | payer OTHER, SELFPAY ==
[2019-05-16 11:29] VITALS: BMI 33.5
--- NOTE | 2021-03-15 12:38 | DI.US.S_ITS ---
PROCEDURE: US SCROTUM INDICATIONS: RIGHT TESTICULAR DISCOMFORT X 4 DAYS TECHNIQUE: Real-time scanning was performed of the scrotum and testicles, with image documentation. Color and pulse Doppler interrogation was performed of both testicles. COMPARISON: None. FINDINGS: Right: Testicle is normal in size at 5.0 x 2.4 x 3.7 cm, and homogenous in echotexture. Epididymis is normal in overall size and morphology. No hydrocele or varicoceles. Overlying scrotal skin is normal in thickness. Left: Testicle is normal in size at 4.8 x 2.4 x 3.2 cm, and homogeneous in echotexture. Epididymis is normal in overall size and morphology. No hydrocele or varicoceles. Overlying scrotal skin is normal in thickness. Doppler: Color and pulse Doppler demonstrate normal and symmetric arterial flow in both testicles. IMPRESSION: No signs of testicular torsion or acute epididymitis. Ultrasound within normal limits. Dictated by: Sudeep Mckinney M.D. on 03/15/2021 at 13:13 Approved by: Sudeep Mckinney M.D. on 03/15/2021 at 13:14
== END ==
PROVIDERS: PCP Student in an Organized Health Care Education/Training Program; Referring Provider Physician Assistant; Visit Provider Physician Assistant
DX: N50.811 Right testicular pain (principal)
CPT/HCPCS: 76870

== ENCOUNTER → 2021-03-20 11:10 | Outpatient (CLI) | payer OTHER, SELFPAY ==
[2019-05-16 11:29] VITALS: BMI 33.5
--- NOTE | 2021-03-20 | DI.US.S_ITS ---
PROCEDURE: US ABDOMEN LIMITED INDICATIONS: RLQ PAIN TECHNIQUE: Real-time focused scanning was performed of the abdomen, with image documentation. COMPARISON: None. FINDINGS: Scanning is performed at the area of pain involving the right lower quadrant and the right groin. No findings of hernia are seen, including with Valsalva maneuver. IMPRESSION: Unremarkable study, without findings of hernia. Dictated by: Chirag Iverson M.D. on 03/20/2021 at 11:29 Approved by: Chirag Iverson M.D. on 03/20/2021 at 11:32
== END ==
PROVIDERS: PCP Student in an Organized Health Care Education/Training Program; Referring Provider Family Medicine; Visit Provider Family Medicine
DX: R10.31 Right lower quadrant pain (principal); N50.811 Right testicular pain
CPT/HCPCS: 76705

== ENCOUNTER 2021-04-07 06:17 | Emergency (ER) | payer OTHER, SELFPAY ==
[2019-05-16 11:29] VITALS: BMI 33.5
[2021-04-07 06:27] VITALS: BP 156/97; PULSE 88; RESP 15; TEMP 36.6; O2SAT 98; BMI 33.9
--- NOTE | 2021-04-07 06:42 | ED.URI ---
HPI - URI/Sore Throat General Chief Complaint: Upper Respiratory Symptoms Stated Complaint: sees a swollen glob in back of throat Time Seen by Provider: 04/07/21 06:42 Source: patient Mode of arrival: Ambulatory Limitations: no limitations History of Present Illness HPI Narrative: Patient is a 25-year-old male who had 1 episode of gagging this morning and went and looked in his throat he saw his epiglottis in got nervous. He has no difficulty with his patient she has breathing he does not have a sore throat he has not had a fever he is fully vaccinated both with childhood immunizations and with COVID-19. Related Data Home Medications Medication Instructions Recorded Confirmed albuterol sulfate 90 mcg/actuation 2 puff INHALATION Q4-6H PRN 05/12/19 03/15/21 aerosol inhaler acetaminophen 325 mg capsule 1,000 mg PO Q4-6H PRN 08/02/19 03/15/21 (Tylenol) omeprazole 20 mg capsule,delayed 20 mg PO DAILY 03/15/21 03/15/21 release Allergies Allergy/AdvReac Type Severity Reaction Status Date / Time aspirin [ASPIRIN] Allergy Mild SHAKES, CHERY Verified 03/15/21 11:53 oxycodone [OXYCODONE] Allergy Unknown HIVES=PERCO Verified 03/15/21 11:53 CET Review of Systems Review of Systems Narrative: GENERAL: Denies chills, fatigue, malaise, fever, sweats, travel HEENT: Denies sinus pain, ear pain, sore throat, difficulty swallowing, neck pain RESPIRATORY: Denies dyspnea, cough, wheezing, hemoptysis, sputum. CARDIOVASCULAR: Denies chest pain, palpitations, orthopnea, edema GASTROINTESTINAL: Denies nausea, vomiting, abdominal pain, diarrhea, constipation, melena. : Denies dysuria, frequency, incontinence, hematuria, urinary retention, flank pain. MUSCULOSKELETAL: Denies weakness, joint pain, or bony pain SKIN: No rash, no erythema, no pruritus NEUROLOGIC: Denies weakness, dizziness, headache, numbness, change in speech, confusion PSYCHIATRIC: No concerning psychosocial issues. 12 point review of systems is negative except for those stated above and HPI Patient History Medical History (Updated 04/07/21 @ 06:50 by Marga Welsh DO) Arthralgia of left temporomandibular joint Asthma (02/28/14) Heart murmur on physical examination Surgical History History of eye surgery No pertinent past surgical history Social History household members: friend(s) Smoking Status: Never smoker Smoking Status: Never smoker alcohol intake frequency: holidays/special occasions only Substance Use Type: does not use Exam Initial Vital Signs Initial Vital Signs: Vital Signs Temperature 97.8 F 04/07/21 06:27 Pulse Rate 88 04/07/21 06:27 Respiratory Rate 15 04/07/21 06:27 Blood Pressure 156/97 H 04/07/21 06:27 Pulse Oximetry 98 04/07/21 06:27 GENERAL: Well-appearing, well-nourished and in no acute distress. HEENT: Head atraumatic,EOMI, pupils reactive, face symmetric PHARYNX: No erythema, no tonsillar exudate, no cervical lymphadenopathy, at the glottis is noted when he opens his mouth wide. It is not significantly swollen there is no sign of airway obstruction he is managing his own secretions CARDIOVASCULAR: Regular rate and rhythm without murmurs, rubs or gallops. RESPIRATORY: Breath sounds equal bilaterally, no wheezes rales or rhonchi. EXTREMITIES: Normal range of motion, no clubbing or edema. Neurovascularly intact NEUROLOGICAL: Alert and oriented x4.Normal gait and speech. SKIN: Warm, dry, no laceration, no petechiae, no rashes or lesions. Course Vital Signs Vital signs: Vital Signs - 8 hr 04/07/21 06:27 Temperature 97.8 F Pulse Rate 88 Respiratory Rate 15 Blood Pressure 156/97 H Pulse Oximetry 98 MDM - URI/Sore Throat MDM Narrative Medical decision making narrative: Patient has no sign of respiratory distress he is managing his own secretions. He happened to open his mouth wide and see his epiglottis, I does not seem to be causing problems at this time. Discussed warning signs with patient and when to return to the ED if symptoms should develop. Discharge Plan Departure Patient Disposition: Home Clinical Impression: Worried well Instructions: Can COVID-19 be prevented? Activity Restrictions/Additional Instructions: At this time what you are saying in the back of your throat is your epiglottis. It is not causing any harm at this time. If you should develop difficulty swallowing her own spit, increased difficulty breathing or any new or worsening symptoms he needs to return to the emergency department immediately. You have no sign of infection at this time. Please follow-up with her primary care provider in 2-3 days Prescriptions: No Action omeprazole 20 mg capsule,delayed release(DR/EC) 20 mg PO DAILY RF: 0 albuterol sulfate 90 mcg/actuation Hfa Aerosol Inhaler 2 puff INHALATION Q4-6H PRN (Reason: Shortness Of Breath Or Wheezing) RF: 0 acetaminophen [Tylenol] 325 mg Capsule 1,000 mg PO Q4-6H PRN (Reason: Pain (Scale Score 1-3)) RF: 0 Referrals: Vilma Garcia MD [Primary Care Provider] -
== END 2021-04-07 06:53 | disposition home or self-care (01) ==
PROVIDERS: Emergency Provider Emergency Medicine; PCP Student in an Organized Health Care Education/Training Program
DX: J02.9 Acute pharyngitis, unspecified (principal)
CPT/HCPCS: 99281

== ENCOUNTER → 2022-05-17 12:55 | Outpatient (CLI) | payer OTHER, SELFPAY ==
[2019-05-16 11:29] VITALS: BMI 33.5
--- NOTE | 2022-05-17 12:57 | DI.RAD.S_ITS ---
PROCEDURE: XR FOOT RT MIN 3V INDICATIONS: right foot injury TECHNIQUE: 3 views of the foot were acquired. COMPARISON: None. FINDINGS: Bones: Small plantar calcaneal and retrocalcaneal enthesopathy. There is a likely acute fracture at the base of the plantar calcaneal spur. No other fracture identified. Normal alignment. No suspicious bony lesions. Soft tissues: No tibiotalar joint effusion. Achilles tendon appears normal. IMPRESSION: Likely acute fracture at the base of the small plantar calcaneal enthesophyte/spur. Otherwise, no acute fracture or dislocation identified. Dictated by: Jayesh Contreras M.D. on 05/17/2022 at 13:17 Approved by: Jayesh Contreras M.D. on 05/17/2022 at 13:19
== END ==
PROVIDERS: PCP Student in an Organized Health Care Education/Training Program; Referring Provider Nurse Practitioner Critical Care Medicine; Visit Provider Nurse Practitioner Critical Care Medicine
DX: S99.921A Unspecified injury of right foot, initial encounter (principal); M77.31 Calcaneal spur, right foot; X58.XXXA Exposure to other specified factors, initial encounter
CPT/HCPCS: 73630

== ENCOUNTER → 2022-12-30 07:42 | Outpatient (CLI) | payer OTHER, SELFPAY ==
[2019-05-16 11:29] VITALS: BMI 33.5
--- NOTE | 2022-12-31 02:21 | DI.NM.S_ITS ---
DATE OF SERVICE: 12/30/2022 PROCEDURE: Exercise treadmill stress test without imaging. ORDERING PROVIDER: Marium Anderson NP INDICATIONS: The patient is a 27-year-old male with a history of near syncope and bradycardia. FINDINGS: 1. The patient was able to exercise for 10 minutes 2 seconds on a standard Manish protocol suggesting moderately reduced exercise capacity with an DORIS of +30%, achieving 12.8 METs. 2. He had a normal heart rate and blood pressure response to exercise, achieving a maximum heart rate of 181 bpm (94% of his predicted maximum). 3. He had no chest discomfort or other anginal symptoms. 4. His resting ECG shows sinus rhythm with mild, nonspecific T-wave abnormalities in the inferior leads. With stress, this becomes moderately accentuated but resolves in early recovery, and thus is nonspecific for ischemia, especially given the baseline abnormality. There were occasional isolated PACs and PVCs but no complex ectopy. IMPRESSION: 1. Probable normal exercise treadmill stress test for ischemia. While there is slight accentuation of baseline T-wave abnormalities with stress, these resolved early in recovery. If there is a high degree of clinical concern for ischemic heart disease, consider an exercise imaging stress test. 2. Moderately reduced exercise capacity without angina with isolated PACs and PVCs but no complex ectopy. He had a normal heart rate and blood pressure response to exercise. Bandar Reinaldo - LION/jyoti/mir doc#: [id number]/job#: [id number] dd: 12/30/2022 16:22:00 dt: 12/31/2022 02:13:00 DICTATING MD/MARIELLA TO: Andrew Bernabe MD; Marium Anderson NP COPIES MNE: THA
== END ==
PROVIDERS: PCP Registered Nurse; Referring Provider Registered Nurse; Visit Provider Registered Nurse
DX: R00.1 Bradycardia, unspecified (principal); R42 Dizziness and giddiness; R55 Syncope and collapse
CPT/HCPCS: 93017

== ENCOUNTER 2023-05-14 11:41 | Emergency (ER) | payer BC, SELFPAY ==
[2019-05-16 11:29] VITALS: BMI 33.5
[2023-05-14 11:44] VITALS: BP 150/83; PULSE 70; RESP 16; TEMP 36.9; O2SAT 97; BMI 35.2
--- NOTE | 2023-05-14 12:08 | ED_ITS ---
HPI - Abdominal Pain <Luh Reddy PA-C - Last Filed: 05/14/23 12:21> General Chief Complaint: Abdominal Pain Stated Complaint: feels like something stuck in throat/acid reflux Time Seen by Provider: 05/14/23 11:54 Source: patient Mode of arrival: Ambulatory History of Present Illness HPI narrative: Patient is a 28-year-old male with a history of GI bleed several years ago who presents with a globus sensation for 3 days. He has tried taking Tums and Pepcid without relief. He reports very rare indigestion prior to the last 3 days. He rarely drinks alcohol, does not eat much spicy food. He does not routinely take any antacid or PPI. He has a history of a low resting heart rate, denies any cardiac diagnosis or family history of cardiac disease. He was seen in the walk-in clinic this morning and diagnosed with GERD and prescribed a PPI. Pharmacy did not have his medication in stock today and so he decided to come to the emergency department for evaluation. His symptoms are not any worse than they were this morning when he went to the walk-in clinic. He denies any radiation into his left arm, up his neck, nausea, constipation or diarrhea. He has no abdominal pain or blood in his stool. He denies any fever or chills. Related Data Home Medications Medication Instructions Recorded Confirmed albuterol sulfate 90 mcg/actuation 2 puff inhalation Q4-6H PRN 05/12/19 05/14/23 aerosol inhaler Shortness Of Breath Or Wheezing acetaminophen 325 mg capsule 1,000 mg PO Q4-6H PRN Pain (Scale 08/02/19 05/14/23 (Tylenol) Score 1-3) omeprazole 20 mg capsule,delayed 20 mg PO DAILY 03/15/21 05/14/23 release Previous Rx's Medication Instructions Recorded hydrocodone 5 mg-acetaminophen 325 1 tab PO BID PRN pain #14 tabs 05/17/ mg tablet omeprazole magnesium 10 mg oral 20 mg PO DAILY #30 ea 05/14/23 suspension,delayed release (Prilosec) omeprazole magnesium 20 mg 20 mg PO DAILY #14 tabs 05/17/23 tablet,delayed release (Prilosec OTC) Allergies Allergy/AdvReac Type Severity Reaction Status Date / Time aspirin [ASPIRIN] Allergy Mild SHAKES, CHERY Verified 05/14/23 11:05 oxycodone [OXYCODONE] Allergy Unknown HIVES=PERCO Verified 05/14/23 11:05 CET Review of Systems <Luh Reddy PA-C - Last Filed: 05/14/23 12:21> Review of Systems ROS Unobtainable: All systems reviewed & are unremarkable except as noted in HPI and below Patient History <Luh Reddy PA-C - Last Filed: 05/14/23 12:21> Medical History (Updated 05/14/23 @ 12:17 by Luh Reddy PA-C) Arthralgia of left temporomandibular joint Asthma (02/28/14) Heart murmur on physical examination Surgical History History of eye surgery No pertinent past surgical history Social History household members: friend(s) Smoking Status: Never smoker Smoking Status: Never smoker alcohol intake frequency: holidays/special occasions only Substance Use Type: does not use Exam <Luh Reddy PA-C - Last Filed: 05/14/23 12:21> Narrative Exam Narrative: GENERAL: 29 year old patient appears stated age. Well-developed patient, in no distress. NEURO: AOx3. HEAD: Atraumatic. Normocephalic. EYES: Pupils equal round and reactive. Extraocular motions intact. No scleral icterus. No injection or drainage. ENT: Nose without bleeding or purulent drainage. Airway patent. RESPIRATORY: No distress GASTROINTESTINAL: Abdomen soft, no epigastric tenderness, non-tender, nondistended. EXTREMITIES: No edema or joint tenderness. SKIN: No rash or erythema of visible areas Initial Vital Signs Initial Vital Signs: Vital Signs Temperature 98.5 F 05/14/23 11:44 Pulse Rate 70 05/14/23 11:44 Respiratory Rate 16 05/14/23 11:44 Blood Pressure 150/83 H 05/14/23 11:44 Pulse Oximetry 97 05/14/23 11:44 Oxygen Delivery Method Room Air 05/14/23 11:44 <Ulises Brito MD - Last Filed: 05/23/23 08:41> Initial Vital Signs Initial Vital Signs: Vital Signs Temperature 98.5 F 05/14/23 11:44 Pulse Rate 70 05/14/23 11:44 Respiratory Rate 16 05/14/23 11:44 Blood Pressure 150/83 H 05/14/23 11:44 Pulse Oximetry 97 05/14/23 11:44 Oxygen Delivery Method Room Air 05/14/23 11:44 Course <Luh Reddy PA-C - Last Filed: 05/14/23 12:21> Orders Ordered: Discontinued Medications Al Hydrox/Mg Hydrox/Simethicone 20 ml/ Lidocaine HCl 15 ml 0 ml PO NOW ONE Stop: 05/14/23 12:02 Last Admin: 05/14/23 12:21 Dose: 35 ml Documented By: JOSEPH Vital Signs Vital signs: Vital Signs - 8 hr 05/14/23 11:44 Temperature 98.5 F Pulse Rate 70 Respiratory Rate 16 Blood Pressure 150/83 H Pulse Oximetry 97 Oxygen Delivery Method Room Air <Ulises Brito MD - Last Filed: 05/23/23 08:41> Orders Ordered: Discontinued Medications Al Hydrox/Mg Hydrox/Simethicone 20 ml/ Lidocaine HCl 15 ml 0 ml PO NOW ONE Stop: 05/14/23 12:02 Last Admin: 05/14/23 12:21 Dose: 35 ml Documented By: JOSEPH Vital Signs Vital signs: Vital Signs - 8 hr 05/14/23 11:44 Temperature 98.5 F Pulse Rate 70 Respiratory Rate 16 Blood Pressure 150/83 H Pulse Oximetry 97 Oxygen Delivery Method Room Air MDM - Abdominal Pain <Luh Reddy PA-C - Last Filed: 05/14/23 12:21> MDM Narrative Medical decision making narrative: Multiple etiologies for patient's symptoms considered including, but not limited to: GERD, swallowed foreign body, ACS. History very consistent with GERD. Patient has no family history of heart disease or early heart attacks. Vital signs are normal. Patient is in no distress. Discussed if patient felt suspicious for cardiac involvement, given that he came to the emergency department after the walk-in clinic, would consider doing EKG and troponin but patient feels like it is GERD and just wanted some medicine for right now. We will give GI cocktail start on antacid as previously prescribed by walk-in clinic. Return precautions discussed. Patient's symptoms improved over duration of stay with above-stated therapies. Findings and discharge diagnosis discussed with patient/family followed by verbalization of understanding Return precautions discussed with patient/family whom verbalize understanding of diagnosis and plan Discharge Plan Departure Patient Disposition: Home Clinical Impression: GERD (gastroesophageal reflux disease) Qualifiers: Esophagitis presence: esophagitis presence not specified Qualified Code(s): K21.9 - Gastro-esophageal reflux disease without esophagitis Instructions: DI for Dyspepsia Activity Restrictions/Additional Instructions: *You have been diagnosed with gastroesophageal reflux disease. 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 Please read the included instructions regarding dietary changes and lifestyle modifications to decrease acid production. It can take 4-6 weeks for this medication to improve her symptoms. If not feeling better after this period of time, please follow-up with your primary care for reassessment and further evaluation. *What to do: *Please continue to take your regular medications as directed. [ ] New medication prescriptions sent to your pharmacy: [ ] [ ] New medication written as a paper prescription [x] No new medications given *Please follow up with your primary care provider in 2-3 days, call for an ap pointment. Let them know you were seen in the Emergency Department and that we ask that you be seen in follow up. We will electronically transmit a record of today's note if your PCP is in our system *If you do not have a primary care provider please contact the [facility] Resource line at [phone]. They will ask some questions about your medical history and help get you set up with a doctor in the community. *Return to Emergency Department if you should have any new, worsening or concerning symptoms, such as [fever greater than 101 F, shaking chills, worsening pain, persistent vomiting or other concerning symptoms]. Prescriptions: No Action hydrocodone-acetaminophen 5-325 mg tablet 1 tab PO BID PRN (Reason: pain) Qty: 14 0RF Prilosec 10 mg susp,delayed release for recon 20 mg PO DAILY Qty: 30 0RF omeprazole 20 mg capsule,delayed release(DR/EC) 20 mg PO DAILY omeprazole magnesium [Prilosec OTC] 20 mg tablet,delayed release (DR/EC) 20 mg PO DAILY Qty: 14 0RF albuterol sulfate 90 mcg/actuation Hfa Aerosol Inhaler 2 puff INHALATION Q4-6H PRN (Reason: Shortness Of Breath Or Wheezing) acetaminophen [Tylenol] 325 mg Capsule 1,000 mg PO Q4-6H PRN (Reason: Pain (Scale Score 1-3)) Referrals: Marium Anderson ARNP [Primary Care Provider] - Stand Alone Forms: Patient Portal/API ED Sign-out <Ulises Brito MD - Last Filed: 05/23/23 08:41> Cosign ED Attending Cosignature Attestation: I was immediately available in the department for consultation. ?This documentation has been reviewed and I agree with assessment and plan. Supervised by Ulises Brito MD
[2023-05-14] MEDS: MAG HYDROX/ALUMINUM/SIMETH SUS 20 ML, LIDOCAINE VISCOUS 2% 15 ML PO (12:21)
[2023-05-14 12:36] VITALS: BP 142/86; PULSE 72; RESP 18; O2SAT 96
== END 2023-05-14 12:36 | disposition home or self-care (01) ==
PROVIDERS: Emergency Provider Physician Assistant; PCP Registered Nurse
DX: K21.9 Gastro-esophageal reflux disease without esophagitis (principal)
CPT/HCPCS: 99283

== ENCOUNTER 2023-07-03 10:44 | Day surgery (SDC) | payer OTHER, SELFPAY ==
[2019-05-16 11:29] VITALS: BMI 33.5
--- NOTE | 2023-07-03 | PATH_ITS ---
[facility] Accession Number: [id number] No. of containers..02 Tissue . 01 Material submitted: . PART A: duodenum - DUODENUM BIOPSY PART B: gastrointestinal site - ANTRUM BIOPSY . 01 Diagnosis: A. Duodenum, Biopsy: Duodenal mucosa with no diagnostic abnormality. Negative for active inflammation, features of sprue, dysplasia, or malignancy. . B. Stomach, Antrum, Biopsy: Chronic gastritis with reactive gastropathy and prominent eosinophilic infiltrate. Please see comment. Negative for Helicobacter by immunohistochemistry. Negative for intestinal metaplasia. Negative for dysplasia and malignancy. V 07/18/2023 1349 Local . 01 Comment: B. The antral biopsies show increased eosinophils involving the mucosa and submucosa. No obvious viral cytopathic effects or parasitic organisms are identified. There is no evidence of vasculitis, and no granulomas are seen. There is no evidence of a neoplastic cell population. The morphologic appearance is nonspecific, but raises the consideration of infection, allergic disease, drug hypersensitivity, hypereosinophilic syndrome or eosinophilic gastroenteritis. . 01 Electronically signed: . Yolette Kline MD, Pathologist NPI- [id number] . 01 Gross description: . A. Received in formalin, labeled with the patient's name, , and duodenum biopsy, and consists of two kaur, soft tissue fragments measuring 0.3 cm each in greatest dimension. Submitted entirely in cassette A1. B. Received in formalin, labeled with the patient's name, , and antrum biopsy, and consists of four kaur, soft tissue fragments ranging from 0.2 cm to 0.3 cm in greatest dimension. Submitted entirely in cassette B1. ([id number]) /IRAIDA 07/05/2023 1930 Local . 01 Microscopic: . B. An immunohistochemical stain was performed to evaluate for Helicobacter organisms and is negative. The control stain showed appropriate reactivity. . An alcian blue stain was performed to evaluate for intestinal metaplasia and is negative. The control stain showed appropriate reactivity. . * This test was developed and its performance characteristics determined by [facility]. It has not been cleared or approved by the U.S. Food and Drug Administration. The FDA has determined that such clearance or approval is not necessary. This test is used for clinical purposes. It should not be regarded as investigational or for research. . 01 Pathologist provided ICD-10: R10.9 . 01 CPT . 140633, 254242, N32938, 650620 Specimen Comment: A courtesy copy of this report has been sent to [phone] Performed at: 01 [facility] [address] [place] [address], [place], [place] [id number] MD Shmuel Hardin MD Phone: [phone]
[2023-07-03 11:01] VITALS: BMI 33.9
[2023-07-03 11:06] VITALS: BP 141/78; PULSE 65; RESP 19; TEMP 36.4; O2SAT 95
[2023-07-03] MEDS: LACTATED RINGERS 1,000 ML 42 ML IV (11:16)
--- NOTE | 2023-07-03 11:44 | PM.HP.1 ---
History of Present Illness History of Present Illness Date Patient Seen: 07/03/23 Time Patient Seen: 11:45 Chief complaint: SDC Narrative: Rienaldo is a 28-year-old man who has had peptic ulcer disease and gastroesophageal reflux disease for several years. He had 2 EGDs in 2019 which is when the ulcers were discovered. Currently he complains primarily of retrosternal burning discomfort that is constant. [facility] Medical History (Updated 05/29/23 @ 00:00 by ) Arthralgia of left temporomandibular joint Asthma (02/28/14) Heart murmur on physical examination Surgical History History of eye surgery No pertinent past surgical history Social History household members: none Smoking Status: Never smoker alcohol intake: former Meds Home Medications and Allergies Home Medications Medication Instructions Recorded Confirmed Type albuterol sulfate 90 mcg/actuation 2 puff inhalation Q4-6H PRN 05/12/19 07/03/23 History aerosol inhaler Shortness Of Breath Or Wheezing acetaminophen 325 mg capsule 1,000 mg PO Q4-6H PRN Pain (Scale 08/02/19 07/03/23 History (Tylenol) Score 1-3) omeprazole 20 mg capsule,delayed 20 mg PO DAILY 03/15/21 07/03/23 History release Allergies Allergy/AdvReac Type Severity Reaction Status Date / Time aspirin [ASPIRIN] Allergy Mild SHAKES, CHERY Verified 07/03/23 10:59 oxycodone [OXYCODONE] Allergy Unknown HIVES=PERCO Verified 07/03/23 10:59 CET Exam Vital Signs (past 8 hours): - 07/03/23 11:06 Temperature 97.5 F L Pulse Rate 65 Respiratory Rate 19 Blood Pressure 141/78 H Pulse Oximetry 95 Oxygen Delivery Method Room Air Oxygen Delivery Method Room Air Const General: healthy appearing Assessment & Plan Assessment and plan (1) GERD (gastroesophageal reflux disease): Qualifiers: Esophagitis presence: esophagitis presence not specified Qualified Code(s): K21.9 - Gastro-esophageal reflux disease without esophagitis Status: Inactive Plan We reviewed the risks and benefits of esophagogastroduodenoscopy and he would like to proceed
--- NOTE | 2023-07-03 12:00 | PM.OP.EGD ---
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 A bite blocked was placed. The patient was positioned in the left lateral decubitus position. Anesthesia was administered. The endoscope was inserted through the bite block and passed through the esophagus and stomach and into the duodenum. The duodenal mucosa appeared normal. Random biopsies were taken from the duodenum. The scope was withdrawn into the duodenal bulb and no ulcers were seen. The scope was withdrawn into the stomach. There was moderate to severe duodenitis although no ulcers were seen. Random biopsies were taken from the antrum. The rest of the stomach demonstrated mild diffuse gastritis. The scope was retroflexed and no other abnormalities were seen. The scope was withdrawn into the esophagus and no abnormalities were seen within the esophagus. The remainder of the esophagus was normal. The scope was withdrawn. The patient was awakened and brought to recovery. Sedation time: 6 minutes Findings: Duodenitis Post-procedure Disposition: PACU
[2023-07-03 12:03] VITALS: BP 103/53; PULSE 72; RESP 16; TEMP 36; O2SAT 95
[2023-07-03 12:08] VITALS: BP 108/66; PULSE 82; RESP 16; O2SAT 96
[2023-07-03 12:13] VITALS: BP 100/60; PULSE 71; RESP 18; O2SAT 95
[2023-07-03 12:23] VITALS: BP 105/73; PULSE 79; RESP 14; TEMP 36.2; O2SAT 94
[2023-07-03 12:30] VITALS: BP 105/73; PULSE 80; RESP 16; TEMP 36.2; O2SAT 96
== END 2023-07-03 12:45 | disposition home or self-care (01) ==
PROVIDERS: PCP Registered Nurse; Referring Provider Surgery; Visit Provider Surgery
PROC: 0DJ08ZZ Inspection of Upper Intestinal Tract, Via Natural or Artificial Opening Endoscopic (ICD-10-PCS; CPT 43235; principal; 2023-07-03 12:15)
DX: K21.9 Gastro-esophageal reflux disease without esophagitis (principal); Z87.11 Personal history of peptic ulcer disease; K29.80 Duodenitis without bleeding; K29.50 Unspecified chronic gastritis without bleeding; K31.89 Other diseases of stomach and duodenum
CPT/HCPCS: 43239; J2704

== ENCOUNTER → 2023-08-02 09:29 | Outpatient (CLI) | payer OTHER, SELFPAY ==
[2019-05-16 11:29] VITALS: BMI 33.5
--- NOTE | 2023-08-02 | DI.MRI.S_ITS ---
PROCEDURE: MR BRAIN (IAC) WWO CON INDICATIONS: Tinnitus, left ear TECHNIQUE: Noncontrast sagittal T1 spin echo, axial FLAIR, axial gradient echo, axial diffusion and ADC through the brain. Axial thin-slice 3D CISS, coronal TruFISP, axial T1 spin echo with fat saturation through the internal auditory canals. After the administration of contrast, thin slice axial and coronal T1 spin echo with fat saturation through the internal auditory canals, and axial and coronal and sagittal T1 spin echo with fat saturation through the brain. COMPARISON: None. FINDINGS: Image quality: Excellent. Cerebellopontine angles: No cerebellopontine angle masses. Inner ear structures appear normally formed. No suspicious enhancement in the internal auditory canal or along the course of the 7th cranial nerve. CSF spaces: Ventricles are normal in size and shape. No extra-axial fluid collections. Basal cisterns are patent. Brain: No intracranial bleeds or mass effects. Madrigal-white matter interface is intact. No abnormal intracranial enhancement. Diffusion weighted images demonstrate no acute ischemic insults. Brainstem appears normal. Normal intravascular flow voids are present. Skull and face: Calvarial marrow signal is normal. Orbits appear normal. Sinuses: Mucosal thickening along the floors of both maxillary sinuses noted. IMPRESSION: Unremarkable MRI of the brain and internal auditory canals without acoustic schwannoma. Incidental bilateral maxillary mucosal sinus disease Approved by: Mike Burgess M.D. on 08/04/2023 at 13:16
== END ==
PROVIDERS: PCP Registered Nurse; Referring Provider Otolaryngology; Visit Provider Otolaryngology
DX: H93.12 Tinnitus, left ear (principal); H90.42 Sensorineural hearing loss, unilateral, left ear, with unrestricted hearing on the contralateral side; J32.0 Chronic maxillary sinusitis
CPT/HCPCS: 70553; A9579

== ENCOUNTER → 2023-09-11 16:20 | Outpatient (CLI) | payer OTHER, SELFPAY ==
[2019-05-16 11:29] VITALS: BMI 33.5
[2023-09-11 16:59] LABS: Add Manual Diff / Slide Review NO; Basophils Absolute Auto 100 /uL (0-100); Basophils Percent Auto 0.8 % (0-2); Eosinophils Absolute Auto 400 /uL (0-450); Eosinophils Percent Auto 5.4 % (2-4); Hematocrit 44.2 % (41-53); Hemoglobin 15.1 g/dL (13.5-17.5); Lymphocytes Absolute Auto 2400 /uL (1100-4500); Lymphocytes Percent Auto 30.4 % (25-40); Mean Corpuscular HGB Conc 34.2 % (30-36); Mean Corpuscular Hemoglobin 27.5 PG (26-34); Mean Corpuscular Volume 80.4 fL (80-100); Monocytes Absolute Auto 500 /uL (0-900); Monocytes Percent Auto 6.1 % (3-14); Neutrophils Absolute Auto 4600 /uL (1500-7000); Neutrophils Percent Auto 57.3 % (50-75); Platelet Count 288 X10^3/uL (150-400); Red Cell Distribution Width 13.5 % (11.6-14.8)
== END ==
PROVIDERS: PCP Registered Nurse; Referring Provider Internal Medicine Gastroenterology; Visit Provider Internal Medicine Gastroenterology
DX: K21.9 Gastro-esophageal reflux disease without esophagitis (principal); R19.7 Diarrhea, unspecified
CPT/HCPCS: 36415; 85025

== ENCOUNTER → 2023-09-13 10:20 | Outpatient (CLI) | payer BC, SELFPAY ==
[2019-05-16 11:29] VITALS: BMI 33.5
[2023-09-17 18:46] LABS: Calprotectin, Stool 40 ug/g (0-120)
== END ==
PROVIDERS: PCP Registered Nurse; Referring Provider Internal Medicine Gastroenterology; Visit Provider Internal Medicine Gastroenterology
DX: K21.9 Gastro-esophageal reflux disease without esophagitis (principal); R19.7 Diarrhea, unspecified
CPT/HCPCS: 83993

== ENCOUNTER 2023-10-20 09:20 | Day surgery (SDC) | payer OTHER, SELFPAY ==
[2019-05-16 11:29] VITALS: BMI 33.5
[2023-10-20] MEDS: LACTATED RINGERS 1,000 ML 42 ML IV (09:56)
--- NOTE | 2023-10-20 10:02 | PM.OP.EGD ---
Operative Date/Time/Diagnoses Date of procedure: 10/20/23 Pre-op diagnosis: See indication and findings Procedure & Clinicians Study performed: EGD Indications: GERD poorly responsive to medication Surgeon: Viky Montana Procedure Notes Procedure in detail: After informed consent was obtained the patient was placed in left lateral decubitus position. The video upper scope was placed into the oropharynx and with the patient's help swallowed into the esophagus. The esophagus stomach and duodenum were carefully examined. On withdrawal, retroflexed view the GE junction was performed. The scope was removed. Unfortunately the patient was difficult to sedate with some degree of laryngospasm. Procedure had to be aborted and only brief use were seen. Blood loss none Complications none Sedation mac Findings 1. Grossly normal esophagus 2. Grossly normal duodenal bulb and sweep The office will be calling him to set another attempted EGD to be done under general anesthesia with intubation.
--- NOTE | 2023-10-20 10:03 | PM.HP.1 ---
History of Present Illness History of Present Illness Chief [place] [facility] [place]: Poorly responsive GERD [facility] Medical History (Updated 05/29/23 @ 00:00 by ) Arthralgia of left temporomandibular joint Asthma (02/28/14) Heart murmur on physical examination Surgical History History of eye surgery No pertinent past surgical history Social History household members: none Smoking Status: Never smoker alcohol intake: former Meds Home Medications and Allergies Home Medications Medication Instructions Recorded Confirmed Type albuterol sulfate 90 mcg/actuation 2 puff inhalation Q4-6H PRN 05/12/19 07/03/23 History aerosol inhaler Shortness Of Breath Or Wheezing acetaminophen 325 mg capsule 1,000 mg PO Q4-6H PRN Pain (Scale 08/02/19 07/03/23 History (Tylenol) Score 1-3) omeprazole 20 mg capsule,delayed 20 mg PO DAILY 03/15/21 07/03/23 History release Allergies Allergy/AdvReac Type Severity Reaction Status Date / Time aspirin [ASPIRIN] Allergy Mild SHAKES, CHERY Verified 07/03/23 10:59 oxycodone [OXYCODONE] Allergy Unknown HIVES=PERCO Verified 07/03/23 10:59 CET Exam Narrative Exam Narrative: Oropharynx free of lesions Chest clear to auscultation percussion Cardiac exam reveals no S3 or murmur Assessment & Plan Assessment & Plan narrative: Poorly responsive GERD rule out underlying esophagitis. Risks, benefits, alternatives have been explained.
[2023-10-20 10:17] VITALS: BP 137/63; PULSE 63; RESP 95; TEMP 36.4
--- NOTE | 2023-10-20 11:02 | SUR.OPER ---
SEVERAL ATTEMPTS TO PERFORM PROCEDURE.. PATIENT COUGHING AND O2 SAT DECREASING BELOW 70
[2023-10-20 11:04] VITALS: BP 109/68; PULSE 83; RESP 16; TEMP 36.6; O2SAT 94
[2023-10-20 11:09] VITALS: BP 114/72; PULSE 81; RESP 14; O2SAT 95
[2023-10-20 11:14] VITALS: BP 114/81; PULSE 82; RESP 16; O2SAT 95
[2023-10-20 11:19] VITALS: BP 119/78; PULSE 85; RESP 16; O2SAT 97
--- NOTE | 2023-10-20 11:42 | SUR.PHASEI ---
Spoke to Dr Singh. States okay to discharge patient. Unable to complete study so no report given to patient. Patient aware that he is to call Dr Montana's office to schedule for follow up EGD
== END 2023-10-20 11:35 | disposition home or self-care (01) ==
PROVIDERS: PCP Registered Nurse; Referring Provider Internal Medicine Gastroenterology; Visit Provider Internal Medicine Gastroenterology
PROC: 0DJ08ZZ Inspection of Upper Intestinal Tract, Via Natural or Artificial Opening Endoscopic (ICD-10-PCS; CPT 43235; principal; 2023-10-20 10:30)
DX: K21.9 Gastro-esophageal reflux disease without esophagitis (principal); Z53.09 Procedure and treatment not carried out because of other contraindication
CPT/HCPCS: 43235; J2704

== ENCOUNTER → 2023-12-22 08:03 | Outpatient (CLI) | payer BC, SELFPAY ==
[2019-05-16 11:29] VITALS: BMI 33.5
--- NOTE | 2023-12-22 08:04 | DI.ECHO.S_ITS ---
[facility] +---------+ Hospital : : [address] : : [place] : : [id number] : : Phone: [phone] Echocardiogram Report + + :Name: BRUNA GARCÍA Study Date: 12/22/2023 Height: 66 in : :Hospital ReadingLocation: Weight: 210 lb : : Gender: Male BSA: 2.0 m2 : :: 1995 Age: 28 yrs BP: 140/80 mmHg: :Reason For Study: CARDIAC MURMUR : :Ordering Physician: BAUDILIO, : :SAM Performed By: Joann Parson : :Referring: SAM ASTUDILLO : + + Interpretation Summary The ejection fraction is estimated to be 55-60%. There is mild mitral valve prolapse. The mitral valve leaflets prolapse. There is mild to moderate mitral regurgitation mainly directed posteriorly. The right ventricle is borderline dilated. There is trace tricuspid regurgitation. The right ventricular systolic pressure is estimated to be at least 24 mmHg based on an estimated right atrial pressure of 8 mm Hg. Procedure: A two-dimensional transthoracic echocardiogram with color flow and Doppler was performed. The study quality was technically adequate. There is no prior echocardiogram noted for this patient. The patient was in sinus bradycardia with heart rates between 51-66 bpm during the exam. Left Ventricle: The left ventricle is mildly dilated. The estimated left ventricular end diastolic volume is 154 ml. Left ventricular wall thickness is borderline increased. The ejection fraction is estimated to be 55-60%. There are no obvious focal wall motion abnormalities noted but poor endocardial definition reduces the sensitivity for the detection of such. Right Ventricle: The right ventricle is borderline dilated. The right ventricular systolic function is normal. Atria: The left atrium is mildly dilated. The right atrium is borderline dilated. There is no Doppler evidence for an interatrial shunt. Mitral Valve: Mitral valve prolapse is present. There is mild mitral valve prolapse. The mitral valve leaflets prolapse. There is mild to moderate mitral regurgitation mainly directed posteriorly. There is mild to moderate mitral regurgitation. Aortic Valve: The aortic valve is trileaflet. The aortic valve opens well. There is no aortic valve stenosis. No aortic regurgitation is present. Tricuspid Valve: The tricuspid valve is normal in structure and function. There is trace tricuspid regurgitation. The right ventricular systolic pressure is estimated to be at least 24 mmHg based on an estimated right atrial pressure of 8 mm Hg. Pulmonic Valve: The pulmonic valve leaflets are thin and pliable; valve motion is normal. There is mild pulmonic regurgitation. Great Vessels: The aortic root is normal size. The dimensions of the ascending aorta are normal. The IVC is dilated (diameter is greater than 2.1 cm) yet it collapses greater than 50% with a sniff. This suggests a right atrial pressure of 8 mm Hg. Pericardium/ Pleura There is no pericardial effusion. There is no pleural effusion. MMode/2D Measurements & Calculations LVIDd: 6.0 cm LVOT diam: 2.4 cm LVIDs: 3.7 cm Ao root diam: 3.3 cm FS: 38.5 % asc Aorta Diam: 3.2 cm IVSd: 1.2 cm Ao Arch Diam (Prox Trans): 3.0 cm LVPWd: 0.88 cm LV phillips. diameter/BSA (cm/m^2): 2.9 LV sys. diameter/BSA (cm/m^2): 1.8 LA A2 area: 24.6 cm2 RA long axis: 5.4 cm LA A4 area: 27.4 cm2 RA area: 20.9 cm2 LA length (vol): 6.5 cm RA vol: 68.3 ml LA vol: 87.6 ml RA : 33.5 ml/m2 LA vol index: 42.9 ml/m2 IVC diam: 2.2 cm RVD1 (basal): 4.3 cm TAPSE: 1.7 cm Doppler Measurements & Calculations Ao V2 max: 115.1 cm/sec LVOT Max Caleb: 89.0 cm/sec Ao V2 mean: 81.3 cm/sec LV V1 max P.2 mmHg Ao max P.3 mmHg LV V1 VTI: 16.0 cm Ao mean P.0 mmHg DUNG(I,D): 3.6 cm2 Ao V2 VTI: 20.6 cm DUNG(V,D): 3.6 cm2 sev ratio: 0.78 DUNG indexed to BSA (cm^2/m^2): 1.8 MV E max caleb: 112.8 cm/sec TR max caleb: 200.2 cm/sec MV A max caleb: 40.5 cm/sec TR max P.0 mmHg MV E/A: 2.8 PA V2 max: 82.5 cm/sec Med Peak E' Caleb: 9.9 cm/sec PA V2 mean: 56.2 cm/sec E/E' med: 11.4 PA mean P.4 mmHg Lat Peak E' Caleb: 14.1 cm/sec E/E' lat: 8.0 E/e' average: 9.7 MV dec time: 0.18 sec SV(LVOT): 74.5 ml Reading Physician:09:56 AM
== END ==
LOC: ECHO 08:03
PROVIDERS: PCP Registered Nurse; Referring Provider Registered Nurse; Visit Provider Registered Nurse
DX: I34.1 Nonrheumatic mitral (valve) prolapse (principal); I34.0 Nonrheumatic mitral (valve) insufficiency; I37.1 Nonrheumatic pulmonary valve insufficiency; R01.1 Cardiac murmur, unspecified; R00.1 Bradycardia, unspecified
CPT/HCPCS: 93306

== ENCOUNTER → 2024-12-08 18:04 | Outpatient (CLI) | payer BC, SELFPAY ==
[2019-05-16 11:29] VITALS: BMI 33.5
== END ==
LOC: LAB 18:05
PROVIDERS: PCP Registered Nurse; Visit Provider Nurse Practitioner Family
DX: J02.9 Acute pharyngitis, unspecified (principal)
CPT/HCPCS: 87070

== ENCOUNTER → 2024-12-09 09:09 | Outpatient (CLI) | payer BC, SELFPAY ==
[2019-05-16 11:29] VITALS: BMI 33.5
--- NOTE | 2024-12-09 09:10 | DI.RAD.S_ITS ---
PROCEDURE: XR CHEST 2V INDICATIONS: Cough TECHNIQUE: 2 views of the chest were acquired. COMPARISON: None. FINDINGS: Surgical changes and devices: None. Lungs and pleura: Lungs are clear. No pleural effusions or pneumothorax. Mediastinum: Mediastinal contours are normal. Heart size is normal. Bones and chest wall: No suspicious bony abnormalities. Soft tissues appear unremarkable. IMPRESSION: No acute cardiopulmonary abnormalities or focal consolidation. Dictated by: Jayesh Contreras M.D. on 12/09/2024 at 15:54 Approved by: Jayesh Contreras M.D. on 12/09/2024 at 15:54
== END ==
PROVIDERS: PCP Registered Nurse; Referring Provider Nurse Practitioner Family; Visit Provider Nurse Practitioner Family
DX: R05.9 Cough, unspecified (principal)
CPT/HCPCS: 71046